=== PATIENT | female | born 1930 | race Caucasian/White ===

== ENCOUNTER 2017-02-28 08:00 | Outpatient (CLI) | payer MEDICARE, OTHER | END 2017-02-28 23:59 | disposition home or self-care (01) | LOC: LAB.R 08:00 | PROVIDERS: ATTEND Internal Medicine | DX: R19.7 Diarrhea, unspecified (principal) | CPT/HCPCS: 81599; 83630; 87045; 87046; 87177; 87209; 87329; 87493 ==

== ENCOUNTER 2017-06-13 15:27 | Day surgery (SDC) | payer MEDICARE ==
[2017-06-13] MEDS ORDERED: ONDANSETRON 4 MG/2 ML VIAL IVP STA ×2 (15:49→19:49)
[2017-06-13] MEDS ORDERED: SODIUM CHLORIDE 0.9% 1,000 ML IV ONE ×2 (15:49→20:12)
[2017-06-13] MEDS ORDERED: MORPHINE 2 MG/ML SYRINGE IVP STA ×2 (15:49→19:41)
--- NOTE | 2017-06-13 15:57 | ED Physician Documentation ---
History of Present Illness - Stated complaint Stated Complaint: ABD PX - Chief complaint Chief Complaint: Abd Pain - Additonal information Additional information: hx from pt and caregiver 86 f s/p patti was fine this AM, ate breakfast took her bath then developed lower abd pain, swelling to RLQ and nausea no diarrhea no urinary sx no hx same Review of Systems Constitutional: denies: Fever Cardiac: denies: Chest pain / pressure Respiratory: denies: Dyspnea GI: reports: Abdominal Pain, Nausea. denies: Diarrhea : denies: Dysuria Endocrine: denies: Easy bruising / bleeding PD PAST MEDICAL HISTORY - Past Medical History Past Medical History: Yes Cardiovascular: Coronary artery disease - Past Surgical History General: Cholecystectomy Cardiovascular: Coronary stent - Present Medications Home Medications: Ambulatory Orders Medication Instructions Recorded Confirmed Aspirin 81 mg PO 06/13/17 Levothyroxine [Synthroid] 50 mcg PO QDAC 06/13/17 06/13/17 Metoprolol Tartrate 25 mg PO 06/13/17 Simvastatin [Zocor] 10 mg PO 06/13/17 - Allergies Allergies/Adverse Reactions: Allergies Allergy/AdvReac Type Severity Reaction Status Date / Time No Known Drug Allergies Allergy Verified 06/13/17 15:44 PD ED PE NORMAL - Vitals Vital signs reviewed: Yes - Neck Neck: Supple, no meningeal sign - Cardiac Cardiac: RRR - Respiratory Respiratory: No respiratory distress - Abdomen Abdomen: Soft, Other (+ BS, soft, tender firm swelling RLQ above inguinal crease c/w incarcerated hernia, unable to reduce) Results - Vitals Vitals: Vital Signs - 24 hr 06/13/17 06/13/17 15:45 16:08 Temperature 36.8 C Heart Rate 65 58 L Respiratory 14 18 Rate Blood Pressure 226/89 H 209/72 H O2 Saturation 97 99 Oxygen O2 Source Room air - Labs Labs: Laboratory Tests 06/13/17 06/13/17 16:04 16:04 WBC 9.6 RBC 4.32 Hgb 12.9 Hct 38.8 MCV 89.7 MCH 29.9 MCHC 33.4 RDW 14.4 Plt Count 163 MPV 8.2 Neut # 8.0 H Lymph # 1.1 L [place] # 0.3 Eos # 0.0 Baso # 0.1 Absolute Nucleated RBC 0.00 Nucleated RBC % 0.0 Sodium 134 L Potassium 3.6 Chloride 98 L Carbon Dioxide 25 Anion Gap 11.0 BUN 22 H Creatinine 0.7 Estimated GFR (MDRD) 79 L Glucose 130 H Calcium 9.6 PD MEDICAL DECISION MAKING - ED course ED course: pt and caregiver advised of old spine fx and liver lesion and need for fup Dr Hernandez to ER and also tried to reduce the hernia s success will go to the OR BP high despite pain meds - anesthesia req lopressor Departure - Departure Disposition: ED Transfer to [facility] Clinical Impression: Incarcerated inguinal hernia, Abnormal CT of the abdomen Hypertension Qualifiers: Hypertension type: unspecified Qualified Code(s): I10 - Essential (primary) hypertension Condition: Good Comments: The CT also showed sme old spine fractures and an abnormal spot in liver that could be cancer and needs further evaluation, perhaps a MRI
[2017-06-13 16:12] LABS: BASOPHILS # (AUTO) 0.1 10^3/uL (0.0-0.1); BASOPHILS % (AUTO) 0.7 %; EOSINOPHILS % (AUTO) 0.5 %; HGB - HEMOGLOBIN 12.9 g/dL (12.0-16.0); LYMPHOCYTES # (AUTO) 1.1 10^3/uL (1.5-3.5); MEAN CORPUSCULAR HEMOGLOBIN 29.9 pg (27.0-31.0); MEAN CORPUSCULAR HGB CONC 33.4 g/dL (32.0-36.0); MEAN CORPUSCULAR VOLUME 89.7 fL (81.0-99.0); MEAN PLATELET VOLUME 8.2 fL (7.9-10.8); MONOCYTES # (AUTO) 0.3 10^3/uL (0.0-1.0); NEUTROPHILS % (AUTO) 83.8 %; PLT - PLATELET COUNT 163 10^3/uL (130-450); RED BLOOD COUNT 4.32 10^6/uL (4.20-5.40); RED CELL DISTRIBUTION WIDTH 14.4 % (12.0-15.0); WHITE BLOOD COUNT 9.6 x10^3/uL (4.8-10.8)
[2017-06-13 16:24] LABS: CALCIUM 9.6 mg/dL (8.5-10.3); CREATININE 0.7 mg/dL (0.4-1.0)
--- NOTE | 2017-06-13 16:50 | CT Report ---
EXAM: CT ABDOMEN AND PELVIS EXAM DATE: 06/13/2017 04:27 PM. CLINICAL HISTORY: Right lower quadrant incarcerated hernia. COMPARISONS: None. TECHNIQUE: Routine helical CT imaging was performed through the abdomen and pelvis. IV contrast: None . Enteric contrast: No. Reconstructions: Coronal and sagittal. In accordance with CT protocol optimization, one or more of the following dose reduction techniques w ere utilized for this exam: automated exposure control, adjustment of mA and/or KV based on patient s ize, or use of iterative reconstructive technique. FINDINGS: Lung Bases: Aortic, coronary artery, and mitral valve calcification noted. Mediastinal and hilar lymp h node calcification noted. Calcified granuloma, anterior temporal lobe. Liver: Segment 4 1.9 x 3.4 x 2.4 cm low density. Scattered calcified granulomas. Otherwise unremarkab le. Gallbladder/Bile Ducts: Cholecystectomy. No dilated ducts. Spleen: Multiple calcified granulomas. Pancreas: Normal. Adrenal Glands: Normal. Kidneys: Normal. No masses or hydronephrosis. Peritoneal Cavity/Bowel: Mild diverticulosis. Mid to distal small bowel obstruction due to small madison l incarcerated within a right inguinal hernia. No free fluid, free air or adenopathy. No masses or ac agutsina inflammatory process. Nonvisualized appendix. Pelvic Organs: Normal. The bladder and visualized pelvic organs are within normal limits. Vasculature: Heavily calcified non-dilated aorta. 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 Other: None. IMPRESSION: 1. Mid to distal small bowel obstruction due to small bowel incarcerated within a right inguinal randy ia. 2. Mild diverticulosis without signs of diverticulitis. 3. Calcified granulomas in the left upper lobe, liver, and spleen. 4. Low-density liver abnormality. Consider MRI evaluation. 5. 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 [facility] Referring Provider Line: [phone] SITE ID: [id number]
[2017-06-13] MEDS ORDERED: METOPROLOL 5 MG/5 ML VIAL IVP STA (19:07)
[2017-06-13 19:19] VITALS: BP 238/106
[2017-06-13] MEDS ORDERED: BUPIVACAINE 0.5% PF 30 ML VIAL ONE (19:59)
[2017-06-13] MEDS ORDERED: LACTATED RINGERS 1,000 ML IV ONE (20:40)
[2017-06-13] MEDS ORDERED: BUPIVACAINE 0.5% PF 30 ML VIAL SUBQ ONE (20:48)
[2017-06-13] MEDS ORDERED: DEXAMETHASONE 4 MG/ML VIAL IVP ONE (21:00)
[2017-06-13] MEDS ORDERED: GLYCOPYRROLATE 1 MG/5 ML VIAL IVP ONE (21:00)
[2017-06-13] MEDS ORDERED: LABETALOL 5 MG/1 ML 20 ML MDV IV ONE (21:00)
[2017-06-13] MEDS ORDERED: ONDANSETRON 4 MG/2 ML VIAL IVP ONE (21:00)
[2017-06-13] MEDS ORDERED: LIDOCAINE-MPF 2% 5 ML VIAL IM ONE (21:00)
[2017-06-13] MEDS ORDERED: MIDAZOLAM 2 MG/2 ML VIAL IVP ONE (21:00)
[2017-06-13] MEDS ORDERED: SUCCINYLCHOLINE 200 MG/10 ML VIAL IVP ONE (21:00)
[2017-06-13] MEDS ORDERED: NEOSTIGMINE 1 MG/1 ML 10 ML MDV IVP ONE (21:00)
[2017-06-13] MEDS ORDERED: fentaNYL 100 MCG/2 ML VIAL IVP ONE (21:00)
[2017-06-13] MEDS ORDERED: ROCURONIUM 50 MG/5 ML VIAL IVP ONE (21:00)
[2017-06-13] MEDS ORDERED: ePHEDrine 50 MG/ML AMP IVP ONE (21:00)
--- NOTE | 2017-06-13 22:16 | CONSULTATION NOTE ---
Referring Provider Name of Referring Provider:: Vesta Mathis MD Consult Date: 06/13/17 Chief Complaint - Chief Complaint Chief Complaint: Abrupt onset of right lower quadrant abdominal pain associated with mass History of Present Illness - Admitted From Admitted From:: Actually not admitted but placed in outpatient status - History Obtained From Records Reviewed: Yes History obtained from: Patient and daughter in law Exam Limitations: None pertinent - History of Present Illness HPI Comment/Other: I was called on consultation by Dr. Vesta Belle to evaluate this very pleasant 86-year-old female for what appeared on CT to be a incarcerated right inguinal hernia with small bowel obstruction. Additionally, and unfortunately, there are also findings of an abnormal liver mass that to my reading looks a lot like malignancy. The patient is a 86-year-old female who is relatively independent but came up here from [facility] to be with her son and [id number]. In fact her [id number] is in the room with her. The patient was doing well this morning ate breakfast and took a bath and when she was trying to have a bowel movement with some increased abdominal pressure had the abrupt onset of right lower quadrant abdominal pain. This was accompanied by nausea but no vomiting. There is no diarrhea. The patient denies hematemesis, melena, or hematochezia. There were no urinary symptoms. There is no previous occurrence of these symptoms. Of note the patient did have her gallbladder removed in [facility] either in [place] or [facility]. History - Past Medical History Cardiovascular: reports: Coronary artery disease - Past Surgical History General: reports: Cholecystectomy Cardiovascular: reports: Coronary stent Meds/Allgy - Home Medications Home Medications: Ambulatory Orders Medication Instructions Recorded Confirmed Aspirin 81 mg PO 06/13/17 Levothyroxine [Synthroid] 50 mcg PO QDAC 06/13/17 06/13/17 Metoprolol Tartrate 25 mg PO 06/13/17 Simvastatin [Zocor] 10 mg PO 06/13/17 - Allergies Allergies/Adverse Reactions: Allergies Allergy/AdvReac Type Severity Reaction Status Date / Time No Known Drug Allergies Allergy Verified 06/13/17 15:44 Review of Systems - Constitutional Constitutional: reports: Fatigue, Poor appetite - Cardiovascular Cariovascular: reports: Lightheadedness. denies: Chest pain - Respiratory Respiratory: denies: Cough - Gastrointestinal Gastrointestinal: reports: Abdominal pain, Nausea, Poor appetite. denies: Constipation, Diarrhea, Rectal bleeding, Black stools, Bloody stools, Vomiting, Bile emesis, Eagle blood emesis - Musculoskeletal Musculoskeletal: reports: Muscle weakness - Neurological Neurological: reports: General weakness Exam - Vital Signs Reviewed Vital Signs: Yes Vital Signs: Vital Signs x48h Temp Pulse Resp BP Pulse Ox 06/13/17 19:27 71 16 238/106 H 95 06/13/17 19:16 68 14 238/106 H 94 06/13/17 19:15 58 L 16 231/103 H 94 06/13/17 19:10 70 17 241/98 H 94 06/13/17 16:08 58 L 18 209/72 H 99 06/13/17 15:45 36.8 C 65 14 226/89 H 97 - Physical Exam General Appearance: positive: Anxious Eyes Bilateral: positive: No lid inflammation, Conjunctivae nml, No scleral icterus ENT: positive: Dry mucous membranes Neck: positive: Trachea midline Respiratory: positive: Chest non-tender, No respiratory distress, Breath sounds nml Cardiovascular: positive: Regular rate & rhythm Abdomen: positive: Tenderness, Hepatomegaly, Abnml bowel sounds (High pitched.) , Other (Distended. There is no place to mention so I am mentioning it here. There is a non-reducible mass at the RIGHT inguinal crease. It is the size of a golf ball. Despite placing the patient in Trendelenburg and attempting to reduce the incarcerated hernia several times I was unsuccessful.) . negative: Guarding, Rebound Skin: positive: Pallor Neurologic/Psychiatric: positive: Oriented x3 Conclusion/Plan - Diagnosis Diagnosis: Incarcerated RIGHT femoral hernia causing small bowel obstruction. Abnormal CT finding on liver concerning for malignancy - Plan Plan: RIGHT femoral herniorrhaphy with reduction of incarcerated small bowel, possible bowel resection, possible laparoscopy, possible liver biopsy. The indications, procedure, alternatives including no surgery, possible risks including infection (deep or superficial), bleeding requiring transfusion (with all of its risks), additional surgery, and were fully explained to the patient and all questions answered. I also explained the pathophysiology. After a discussion the patient indicated that she wanted to be DNR for her operation understood to mean no cardioversion and no compressions. All questions were fully answered. Verbal and written consent was obtained. The patient, in preparation for surgery has been nothing by mouth, and will receive 2 gm of Cephalexin with induction. She will also have TEDs and venadynes placed for prophylaxis of DVT. I asked her to contact me with any surgical questions and her concerns and she stated that she would. I asked her to let me know if there is any way we can make her stay at [facility] more comfortable and she stated that she would let me know. The plan is to do this operation urgently as an outpatient procedure and to discharge her home following the procedure after an outpatient overnight stay due to her age and co-morbidities. 45 minutes of [id number]-vp-[id number] time spent with the patient, over 80% in discussion and coordination of her care - Lab Results Fish Bones: 06/13/17 16:04 06/13/17 16:04
--- NOTE | 2017-06-13 22:46 | OPERATIVE REPORT ---
Operative Report - General Procedure Date: 06/13/17 Planned Procedure: Reduction incarcerated RIGHT femoral hernia, possible bowel resection, poss Pre-Op Diagnosis: Incarcerated RIGHT femoral hernia, small bowel obstruction, abnormal liver Procedure Performed: Open reduction of incarcerated RIGHT femoral hernia Laparoscopic evaluation of previously incarcerated bowel Laparoscopic biopsy of liver tumor/mass Combined laparoscopic and open (mesh) repair of incarcerated RIGHT femoral hernia Post Op Diagnosis: Same - Procedure Note Primary Surgeon: Cody Hernandez MD Anesthesia Provider: Mellisa Moura CRNA Anesthesia Technique: General ET tube, Local (30 mL 1/2% marcaine) IV Fluids (mL): 1,000 Estimated Blood Loss (mL): 5 Urine Output (mL): 100 Complications: None. - Other Other Information/Narrative: OPERATIVE DESCRIPTION/REPORT: After verbal and written informed consent was obtained detailing the risks of infection, bleeding requiring transfusion with its risks, nerve injury, and , and after I met with the patient confirming the surgery and the site of the surgery and after initialing the site of the surgery with a surgical marker , the patient was brought to the operative suite and placed supine on the operating table. Great care was taken to avoid pressure points to prevent pressure necrosis or nerve injury. Monitoring devices were applied along with TEDs and pneumatic compressive stockings (to prevent DVT). The patient received preoperative antibiotics for surgical prophylaxis. Mellisa Moura sedated and anesthetized the patient for the entire procedure. The patient was prepped and draped in the usual sterile manner. With the patient draped my initials were clearly visible. A "time in" then confirmed that the patient was identified with 3 identifiers (name, date and medical record number), the history and physical was in the chart, the signed consent confirming the procedure was in the chart, the patient was in the correct position, the aforementioned prophylactic measures were in place or given, we had the correct personnel and equipment to complete the procedure and that anesthesia, surgery and nursing were given an opportunity to express any concerns. With the agreement of everyone in the room, we proceeded with the operation. After the inguinal area was injected with 0.5% marcaine, anesthetizing the area , a standard incision was made and dissection was carried down to the Bovie electrocautery. The external oblique aponeurosis was cleared of overlying adherent tissue, and the external ring was delineated. Below the external oblique a hernia sac was noted to be coming up and covering the external ring. Dissection of this area revealed that the sac was coming from just medial to the femoral vein. The sac was dissected back to its origin. The sac was quite large and the hernia defect very small. I could not reduce the hernia sac contents without increasing the size of the defect. I did this at the 2 o' clock position with Bovie electrocautery with a right angle clamp defining the fascia. Once this was done the hernia could easily be reduced. I attempted to place the 12 mm blunt tipped port in through the hernia defect but could not see well enough to perforate the peritoneum safely to enter the abdomen. As such I opted to place the port in the standard position at the umbilicus. The initial incision was at the umbilicus and dissection to the linea alba was completed using blunt dissection. The linea alba was grasped with a Josie and incised. In a similar manner the peritoneum was grasped and incised using Metzenbaum scissors. In this location, a 12 mm blunt tipped, balloon tipped port was placed and the balloon was inflated to keep the port in position. The abdominal cavity was insufflated with carbon dioxide to steady-state pressure of 12 mmHg. One additional 5 mm port was placed at the patient's right abdomen lateral to the umbilical port under direct vision and without incident. Depending on whether I was looking at the liver (reverse Trendelenburg) or the hernia defect (Trendelenburg) the patient was moved accordingly throughout the case. I defined and photographed the hernia defect site. Although the incarcerated small bowel looked bruised it was peristalting well and it was "pinking" up well. As I result I photographed it and I thought it was viable. I then turned my attention to the liver. The liver was abnormally rotated down and laterally. When I looked at segments 7 and 8 it was clear that there was an abnormal mass superior to them pushing the liver down and laterally. I performed a trucut liver biopsy under direct vision of this mass and an excellent specimen was obtained. Upon removal of the needle there was a small amount of blood and bile that was easily controlled with the application of Bovie electrocautery. All of this was photographed. Attention was then placed to the hernia defect. The peritoneal sac was ligated intra-abdominally with a 2-0 PDS endoloop. I injected the port sites as well as the hernia site at the peritoneal, fascial, and skin levels under direct vision with 0.5% Marcaine. The remaining carbon dioxide was expelled from the abdomen. A Covidien medium plug (Ref#[id number], Lot#[id number], Use by date 2022) placed in the femoral defect and secured to the fascia with a 3-0 and then 2-0 PDS closing the defect without impinging on the femoral vein. The fascia at the umbilicus was reapproximated using 2 [id number] 0 Vicryl sutures. The skin at each port site was approximated using a subcuticular 4-0 Monocryl. The subcutaneous tissues at the hernia site were approximated with a simple 2-0 Vicryl and the skin incision was approximated with 4-0 Monocryl in a subcuticular fashion. The skin was prepped with benzoin and steristrips were applied at all sites. A dressing was then applied. The surgical count of instruments, needles and sponges was reported as correct twice. Mastisol, Steri -Strips and sterile surgical dressings were applied. The patient was then awakened from anesthesia, extubated, and having tolerated the procedure well, was transported to the recovery room. No complications were encountered. A "time out" confirmed the operation performed, the fluids given, the estimated blood loss and anesthesia, surgery and nursing were given an opportunity to express any concerns. Dragon disclaimer: This document was created in part using voice recognition technology. Because of the inherent limitations of the system ([employer]'s [employer] user manual states that the licensee understands that speech recognition is a statistical process and that recognition errors are inherent in the process), occasional same sounding word substitutions and grammatical errors do occur and persist despite proofreading. Please read this document for context.
[2017-06-14] MEDS ORDERED: LACTATED RINGERS 1,000 ML IV ONE (03:02)
--- NOTE | 2017-06-14 04:48 | CONSULTATION NOTE ---
DATE OF SERVICE: 06/14/2017 Physician: Jacklyn Elise MD REASON FOR CONSULTATION: Management of postoperative hypertension. REFERRING PROVIDER: Cody Hernandez MD, General Surgery. HISTORY OF PRESENT ILLNESS: I am being asked to see patient in the postoperative setting for an inguinal hernia repair. She has recently moved here from [place], and is living with her daughter and son-in-law. She does have a coronary artery history with a stent in the past, as well as previous gallbladder surgery, but is regarded as healthy and independent. She was in her usual state of health when she presented with acute onset of abdominal pain after eating this morning. She had some nausea, no vomiting. No diarrhea. She came to the emergency room because of the increasing pain and was found to be afebrile, normal white cell count, but a CAT scan showing an incarcerated right femoral hernia causing small-bowel obstruction. Unfortunately, there is also an abnormal finding in the liver with the liver mass that looks like it may be a malignancy. Dr. Hernandez promptly took her to the operating room where she had successful treatment of the incarcerated femoral hernia. He has biopsied the liver mass. In the preoperative setting, she takes metoprolol for her blood pressure. In the postoperative setting, her blood pressure was 226/89, remained elevated into the recovery period. Patient herself is asymptomatic and that there is no chest pain, shortness of breath. She does not describe any recent changes in cardiovascular endurance of edema or orthopnea. Dr. Hernandez has asked that we please manage her hypertension. PAST MEDICAL HISTORY 1. Hypertension. 2. Coronary artery disease with previous history of stent. 3. History of cholecystectomy. 4. Hypothyroidism. 5. Hyperlipidemia. ALLERGIES: NO KNOWN DRUG ALLERGIES. SOCIAL HISTORY: She is a nonsmoker, rare alcohol drinker. No history of recreational substance abuse. FAMILY HISTORY: Unobtainable at this time. She is postop, sedated, and can't remember. REVIEW OF SYSTEMS CONSTITUTIONAL: She says that she feels much better with regard to her abdominal pain now that Dr. Hernandez has fixed it. She has some incisional pain, but that horrible bowel pressure and pain are gone. HEAD AND NECK: She denies glaucoma or cataracts. She is a little bit deaf. PULMONARY: Denies emphysema, coughing, wheezing, chest congestion. CARDIAC: Does not have any recent chest pain in the last few months. She denies any edema, orthopnea, palpitations. Currently, denies that at this point in time as well. GASTROINTESTINAL: As above. GENITOURINARY: Occasional urinary incontinence with coughing but denies urgency , frequency, dysuria, hematuria or flank pain. JOINTS: Stiff in the morning, and states that what do you expect when you are her age, but no new effusions or pain. PSYCHIATRIC: Denies depression, anxiety. CENTRAL NERVOUS SYSTEM: Denies stroke-like symptoms, seizures, history of memory loss. PHYSICAL EXAMINATION She is seen in her room after being transferred there from PACU. She is quite sleepy and I have to wake her up. VITAL SIGNS: Temperature is 36.8, blood pressure 238/106 at 8 or 9 in the evening. By the time of the requested Consult, her BP is now 130's/70's. She is asleep, wakens easily and is comfortable. Oxygen saturation is 100%. Pulse rate is 71. GENERAL: She is a thin, thin, elderly woman who is sleepy, and aches a little bit from her abdominal incision, but in no acute distress. HEAD AND NECK: Bilateral temporal wasting, thinness is evident. Dry oral mucosa with pupils reactive, sclerae are nonicteric. Neck is supple without goiter, bruits or JVD. LUNGS: Clear to auscultation and percussion and with slow unlabored respirations. HEART: PMI normally placed with a regular rate and rhythm. No murmurs, rubs, or gallops. ABDOMEN: No bowel sounds at this time, slightly distended, but no rebound or guarding. EXTREMITIES: Very thin without clubbing, cyanosis or edema and severe loss of muscle mass overall. NEUROLOGIC: She is sleepy, but alert to place and time. Understands why she is here and can tell me in loose sentences her good story. No focal deficits. LABORATORY DATA: Before surgery her sodium was 134, BUN 22, creatinine 0.7, random glucose 130. White cell count was 9.6, hemoglobin 12.9. Before her surgery, abdomen and pelvis CT had mild to distal small-bowel obstruction due to small bowel incarceration with right inguinal hernia. Mild diverticulosis. Low density liver abnormality. Chronic severe burst fractures at T11 and 12. ASSESSMENT/PLAN 1. Essential hypertension history. Currently severely uncontrolled in the postoperative setting. I do not know what her baseline pressures are like. She is usually on metoprolol. Because she is n.p.o., would recommend IV Lopressor p.r.n. as well as IV hydralazine until she can start taking medicines by mouth. 2. Postoperative day number 0 for incarcerated right femoral hernia causing small-bowel obstruction. General Surgery to follow. Patient is still in same day surgical status. Anticipate discharge later this morning. 3. FULL CODE at this time. 4. Liver mass, status post biopsy. Will need to be followed up in the outpatient setting. 5. Deep venous thrombosis prophylaxis is thromboembolic disease hose and compression stockings. TD: 06/14/2017 04:47 YANIRA
[2017-06-14] MEDS ORDERED: hydrALAZINE INJ 20 MG/ML VIAL IVP PRN (06:16)
[2017-06-14] MEDS ORDERED: METOPROLOL 5 MG/5 ML VIAL IVP PRN (06:22)
[2017-06-14] MEDS ORDERED: HYDROcod/ACETAM 5/325 MG TABLET PO PRN (06:23)
[2017-06-14] MEDS ORDERED: HYDROmorphone 0.5 MG/0.5 ML SYRINGE IVP PRN (06:23)
[2017-06-14] MEDS ORDERED: ONDANSETRON 4 MG/2 ML VIAL IVP PRN (06:24)
== END 2017-06-14 10:00 | disposition home or self-care (01) ==
LOC: ED 15:27 → SDS 18:58 → MS2 22:41 → SDS 06-14 10:00
PROVIDERS: ATTEND Surgery
PROC: 0YU70JZ Supplement Right Femoral Region with Synthetic Substitute, Open Approach (ICD-10-PCS; principal; 2017-06-13 19:46)
PROC: 0FB04ZX Excision of Liver, Percutaneous Endoscopic Approach, Diagnostic (ICD-10-PCS; 2017-06-13 19:46)
DX: K41.90 Unilateral femoral hernia, without obstruction or gangrene, not specified as recurrent (principal); K41.30 Unilateral femoral hernia, with obstruction, without gangrene, not specified as recurrent; K56.609 Unspecified intestinal obstruction, unspecified as to partial versus complete obstruction; K73.9 Chronic hepatitis, unspecified; I25.10 Atherosclerotic heart disease of native coronary artery without angina pectoris; Z79.82 Long term (current) use of aspirin
CPT/HCPCS: 36415; 47379; 49553; 74176; 80048; 85025; 96361; 96374; 96375; 96376; 99284; A9270; C1781; J0330; J2270; J7120; 88307; 88313; 99283

== ENCOUNTER 2017-08-16 03:01 | Outpatient (CLI) | payer MEDICARE | END 2017-08-16 03:02 | disposition critical access hospital (66) | LOC: EMS 03:01 | PROVIDERS: ATTEND Surgery | DX: M25.552 Pain in left hip (principal); W19.XXXA Unspecified fall, initial encounter | CPT/HCPCS: A0425; A0427 ==

== ENCOUNTER 2017-08-16 03:13 | Inpatient (IN) | payer MEDICARE ==
--- NOTE | 2017-08-16 03:24 | ED Physician Documentation ---
PD HPI LOWER EXT INJURY - Stated complaint Stated Complaint: FELL, LEFT HIP PAIN AND DEFORMITY - History obtained from History obtained from: Patient, Family - History of Present Illness PD HPI LOW EXT INJURY LOCATION: Left, Hip Type of injury: Fall Where injury occurred: Home Timing - onset: Enter time (19:00), Last night Timing - duration: Hours Timing - details: Abrupt onset Improved by: Rest Worsened by: Moving, Palpating Associated symptoms: Swelling Contributing factors: No: Anticoagulated, Prior ortho surgery, Prosthetic joint , Work related Recently seen: Not recently seen Review of Systems Ten Systems: 10 systems reviewed and negative Musculoskeletal: reports: Joint pain, Joint swelling, Pain with weight bearing ( unable to weight bear LLE). denies: Neck pain, Back pain Neurologic: reports: Reviewed and negative PD PAST MEDICAL HISTORY - Past Medical History Cardiovascular: Coronary artery disease - Past Surgical History General: Cholecystectomy Cardiovascular: Coronary stent - Present Medications Home Medications: Ambulatory Orders Medication Instructions Recorded Confirmed Aspirin 81 mg PO DAILY 06/13/17 08/16/17 Levothyroxine Sodium [Synthroid] 50 mcg PO QDAC 08/16/17 08/16/17 Metoprolol Succinate [Toprol Xl] 25 mg PO DAILY 08/16/17 08/16/17 Simvastatin [Simvastatin] 20 mg PO QPM 08/16/17 08/16/17 - Allergies Allergies/Adverse Reactions: Allergies Allergy/AdvReac Type Severity Reaction Status Date / Time No Known Drug Allergies Allergy Verified 08/16/17 03:27 - Social History Does the pt smoke?: No Smoking Status: Never smoker Does the pt drink ETOH?: No Does the pt have substance abuse?: No - Immunizations Immunizations are current?: Yes PD ED PE NORMAL - Vitals Vital signs reviewed: Yes - General General: Alert and oriented X 3, No acute distress, Well developed/nourished - HEENT HEENT: Moist mucous membranes - Neck Neck: No bony TTP - Cardiac Cardiac: RRR - Respiratory Respiratory: No respiratory distress, Clear bilaterally - Abdomen Abdomen: Soft, Non tender - Back Back: No spinal TTP - Derm Derm: Normal color, Warm and dry - Extremities Extremities: No edema - Neuro Neuro: Alert and oriented X 3, barrel painter 2-12 intact, No motor deficit, No sensory deficit, Normal speech Eye Opening: Spontaneous Motor: Obeys Commands Verbal: Oriented GCS Score: 15 PD ED PE EXPANDED - Extremities Extremities: Tenderness, Limited ROM, Left hip Results - Vitals Vitals: Oxygen O2 Source Nasal cannula - Labs Labs: Laboratory Tests 08/16/17 08/16/17 08/16/17 05:15 05:15 05:15 WBC 6.7 RBC 3.54 L Hgb 11.0 L Hct 33.2 L MCV 93.6 MCH 31.1 H MCHC 33.2 RDW 14.3 Plt Count 132 MPV 8.0 Neut # (Auto) 5.3 Lymph # (Auto) 1.0 L [place] # (Auto) 0.4 Eos # (Auto) 0.0 Baso # (Auto) 0.0 Absolute Nucleated RBC 0.00 Nucleated RBC % 0.0 Sodium 135 Potassium 4.0 Chloride 103 Carbon Dioxide 26 Anion Gap 6.0 BUN 25 H Creatinine 0.9 Estimated GFR (MDRD) 59 L Glucose 151 H Calcium 9.3 Blood Type A POSITIVE Antibody Screen POSITIVE Antibody Identification Warm Auto Antibody Crossmatch IS Only 08/16/17 05:15 WBC RBC Hgb Hct MCV MCH MCHC RDW Plt Count MPV Neut # (Auto) Lymph # (Auto) [place] # (Auto) Eos # (Auto) Baso # (Auto) Absolute Nucleated RBC Nucleated RBC % Sodium Potassium Chloride Carbon Dioxide Anion Gap BUN Creatinine Estimated GFR (MDRD) Glucose Calcium Blood Type Cancelled Antibody Screen Cancelled Antibody Identification Crossmatch IS Only See Detail - Rads (name of study) chest xray Radiology: Prelim report reviewed, See rad report left hip xrays Radiology: Prelim report reviewed, See rad report PD MEDICAL DECISION MAKING - ED course Complexity details: reviewed results, re-evaluated patient, considered differential, d/w patient, d/w family - Sepsis Event Vital Signs: Oxygen O2 Source Nasal cannula Departure - Departure Disposition: 66 [facility] DC/Xfer Clinical Impression: Hip fracture, left Condition: Stable Discharge Date/Time: 08/16/17 05:50
[2017-08-16] MEDS ORDERED: fentaNYL 100 MCG/2 ML VIAL IVP STA (03:33)
[2017-08-16] MEDS ORDERED: fentaNYL 100 MCG/2 ML VIAL ONE (03:47)
--- NOTE | 2017-08-16 04:17 | XRAY Report ---
Procedure Date: 08/16/2017 Accession Number: [id number] / [id number] Procedure: XR - Hip w/Pelvis 2-3V LT CPT Code: FULL RESULT: EXAM: LEFT HIP AND PELVIS RADIOGRAPHY EXAM DATE: 08/16/2017 04:04 AM. HISTORY: Fall, left hip pain. COMPARISONS: None. TECHNIQUE: 1 view of the pelvis and 1 view of the hip. FINDINGS: Bones: Osteopenia. Left hip fracture which is probably intertrochanteric. Joints: No dislocation seen. Mild degenerative changes in the hips. Soft Tissues: Soft tissue swelling. IMPRESSION: 1. Osteopenia with left hip fracture which is probably intertrochanteric. RADIA
--- NOTE | 2017-08-16 04:18 | XRAY Report ---
Procedure Date: 08/16/2017 Accession Number: [id number] / [id number] Procedure: XR - Chest 1 View X-Ray CPT Code: 59328 FULL RESULT: EXAM: CHEST RADIOGRAPHY EXAM DATE: 08/16/2017 04:03 AM. CLINICAL HISTORY: Left hip fracture. Preoperative exam for fracture repair. COMPARISON: None. TECHNIQUE: 1 view. FINDINGS: Lungs/Pleura: Small lung volumes. No alveolar consolidation or pleural effusion seen. No pneumothorax. Mediastinum: Within exam limitations, heart appears mildly enlarged. Mitral annulus calcification. Aortic calcification. Other: Osteopenia. Status post cholecystectomy. IMPRESSION: 1. Small lung volumes and mild cardiomegaly. 2. Mitral annulus calcification. RADIA
--- NOTE | 2017-08-16 04:59 | PROVIDER PROGRESS NOTE ---
Subjective - Prog Note Date Prog Note Date: 08/16/17 Prog Note Time: 04:57 - Subjective Pt reports feeling: Worse (Patient STCORRINA hickey GLF last PM, injuring her left hip. This morning continued to hurt and unable to weight bear on left. Taken to ED where XR showed a left IT hip fracture. Last ate prior to midnight. No prior hip fx. No LOC or other injury) Objective - Vital Signs/Intake & Output Vital Signs: Vital Signs x48h Temp Pulse Resp BP Pulse Ox 08/16/17 03:15 36.2 C L 73 16 186/91 H 95 - Lab Results Fish Bones: 08/16/17 05:15 08/16/17 05:15 - Diagnostic Imaging Diagnostic Imaging Results: positive: Other Diagnostic Imaging Comments: XR show left IT hip fracture - Other Results/Comments Other Results/Comments: EXAM: Left hip - painful hip motion. Lateral hip tenderness. Moves toes well. Sensation intact. Good cap filling Assessment/Plan - Problem List (1) Closed left hip fracture Impression: Fracture is IT in location PLAN: if cleared by medicine, plan short interTan nailing of fracture this AM. Risk/Benefits of surgery explained. Questions answered. Leg marked. Consent signed. Qualifiers: Encounter type: initial encounter Qualified Code(s): S72.002A - Fracture of unspecified part of neck of left femur, initial encounter for closed fracture
[2017-08-16 05:26] LABS: BASOPHILS % (AUTO) 0.5 %; EOSINOPHILS % (AUTO) 0.2 %; LYMPHOCYTES % (AUTO) 14.6 %; MEAN CORPUSCULAR HEMOGLOBIN 31.1 pg (27.0-31.0); MEAN CORPUSCULAR HGB CONC 33.2 g/dL (32.0-36.0); MEAN CORPUSCULAR VOLUME 93.6 fL (81.0-99.0); MONOCYTES # (AUTO) 0.4 10^3/uL (0.0-1.0); MONOCYTES % (AUTO) 6.1 %; NEUTROPHILS # (AUTO) 5.3 10^3/uL (1.5-6.6); NEUTROPHILS % (AUTO) 78.6 %; PLT - PLATELET COUNT 132 10^3/uL (130-450); RED BLOOD COUNT 3.54 10^6/uL (4.20-5.40); RED CELL DISTRIBUTION WIDTH 14.3 % (12.0-15.0); WHITE BLOOD COUNT 6.7 x10^3/uL (4.8-10.8)
[2017-08-16 05:36] LABS: CALCIUM 9.3 mg/dL (8.5-10.3); CREATININE 0.9 mg/dL (0.4-1.0)
[2017-08-16] MEDS ORDERED: ONDANSETRON 4 MG/2 ML VIAL IVP PRN ×2 (05:36→11:26)
[2017-08-16] MEDS ORDERED: ONDANSETRON ODT 4 MG TABLET TL PRN (05:36)
[2017-08-16] MEDS ORDERED: SODIUM CHLORIDE FLUSH 0.9% 10 ML SYRINGE IVP PRN ×2 (05:36→11:26)
[2017-08-16] MEDS ORDERED: METOPROLOL 5 MG/5 ML VIAL IVP STA (05:40)
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
[2017-08-16] MEDS ORDERED: SODIUM CHLORIDE 0.9% 1,000 ML IV SCH (06:00)
[2017-08-16] MEDS ORDERED: ceFAZolin 2 GM/50 ML 2 GM/50 ML BAG IV SCH ×2 (08:00→11:30)
[2017-08-16] MEDS ORDERED: cloNIDine 0.1 MG TABLET PO PRN (08:08)
--- NOTE | 2017-08-16 08:43 | CONSULTATION NOTE ---
DATE OF SERVICE: 08/16/2017 Physician: lFex Pérez MD REFERRING PHYSICIAN: Dr. Sridhar Wheat of the Emergency Room Department. CHIEF COMPLAINT: "My left hip hurts." HISTORY OF PRESENT ILLNESS: The patient is an 86-year-old woman recently moved up here from [place], and living with her son, who apparently had an unwitnessed ground level fall at her home last evening. She was put in the bed, albeit with some pain in her left hip. When she attempted to get up in the middle of the night to go to the bathroom, she had too much pain to be able to weight-bear or to walk to the bathroom. This prompted their evaluation in the Emergency Room early this morning. X-rays taken in the Emergency Room show an impacted left intertrochanteric hip fracture. The patient had no other injuries noted. No loss of consciousness or nausea or vomiting. No prior hip fracture is noted. PHYSICAL EXAMINATION: Left hip was evaluated. Left hip was painful with range of motion. Had lateral hip tenderness on palpation. The patient moves her toes well. Sensation appeared to be intact. Good capillary refilling noted. X-RAYS: Left hip films show an impacted left intertrochanteric hip fracture, in a mild amount of varus angulation. ASSESSMENT: 1. Closed left intertrochanteric hip fracture. 2. History of hypertension. PLAN: The patient had been cleared by medicine for surgical intervention later this morning. We will plan then on doing a short Intertan nailing of her left hip fracture. The risks and benefits of surgery were explained to the patient and her son, including anesthesia risks, blood loss, infection, nerve damage, malunion or nonunion, deep venous thromboses, etc. All of their questions were answered. They wished to proceed with surgery as planned. The leg was marked. Consent signed. TD: 08/16/2017 08:19
[2017-08-16] MEDS: MORPHINE 2 MG/ML SYRINGE IVP PRN ×2 (08:54→15:58)
[2017-08-16] MEDS ORDERED: SODIUM CHLORIDE FLUSH 0.9% 10 ML SYRINGE IVP SCH (09:00)
--- NOTE | 2017-08-16 09:14 | ANESTHESIA ---
Pre-Anesthesia VS, & Labs left hip fracture short intertan nailing of left hip Vital Signs: Temp Pulse Resp BP Pulse Ox 37.1 C 60 18 171/61 H 98 08/16/17 08:00 08/16/17 08:00 08/16/17 08:00 08/16/17 08:00 08/16/17 08:00 Height and Weight: Height 5 ft Weight (kg) 44 kg Body Mass Index 18.9 - Lab Results Fish Bones: 08/16/17 05:15 08/16/17 05:15 Home Medications and Allergies Home Medications: Ambulatory Orders Medication Instructions Recorded Confirmed Aspirin 81 mg PO DAILY 06/13/17 08/16/17 Levothyroxine Sodium [Synthroid] 50 mcg PO QDAC 08/16/17 08/16/17 Metoprolol Succinate [Toprol Xl] 25 mg PO DAILY 08/16/17 08/16/17 Simvastatin [Simvastatin] 20 mg PO QPM 08/16/17 08/16/17 Allergies/Adverse Reactions: Allergies Allergy/AdvReac Type Severity Reaction Status Date / Time No Known Drug Allergies Allergy Verified 08/16/17 03:27 Anes History & Medical History - Airway/Dental Dental: Dentures full Upper, Dentures full Lower Neck Mobility: Reduced Mallampati classification: II - Medical History Cardiovascular: reports: Hypertension, High cholesterol, Coronary artery disease , [place] Pulmonary: reports: None Gastrointestinal: reports: Hepatitis, Cirrhosis (with liver mass, pathology from 06/2017 in [facility]) Urinary: reports: None Neuro: reports: Tremors Musculoskeletal: reports: Osteoarthritis, Osteoporosis, Chronic back pain Endocrine/Autoimmune: reports: HyPOthyroidism Blood Disorders: reports: None Skin: reports: None Smoking Status: Former smoker Psychosocial: reports: No issues indicated - Surgical History General: Cholecystectomy, Other Cardiothoracic: Coronary stent Results - EKG Results EKG Comparison: Old EKG unavailable Exam Respiratory: Lungs clear Cardiovascular: Normal S1, Normal S2, No murmurs Extremities: No clubbing Mental/Cognitive Status: Alert/Oriented X3 Cognitive Status: Within normal limits Plan Anesthesia Type: Spinal ASA classification: 3-Severe systemic disease Is this case an emergency?: No
[2017-08-16] MEDS ORDERED: BUPIVACAINE 0.25%-EPI 1:200000 PF 30 ML VIAL ONE (09:56)
[2017-08-16] MEDS ORDERED: BUPIVACAINE 0.25% PF 30 ML VIAL ONE (09:57)
[2017-08-16] MEDS ORDERED: SODIUM CHLORIDE 0.9% 1,000 ML IV ONE (09:59)
[2017-08-16] MEDS ORDERED: BUPIVACAINE 0.25%-EPI 1:200000 PF 30 ML VIAL SUBQ ONE ×2 (10:47)
[2017-08-16] MEDS ORDERED: ePHEDrine 50 MG/ML VIAL IVP ONE (10:48)
[2017-08-16] MEDS ORDERED: fentaNYL 100 MCG/2 ML VIAL IVP ONE (10:48)
[2017-08-16] MEDS ORDERED: MIDAZOLAM 2 MG/2 ML VIAL IVP ONE (10:48)
[2017-08-16] MEDS ORDERED: PROPOFOL 200 MG/20 ML VIAL IVP ONE (10:48)
[2017-08-16] MEDS ORDERED: oxyCOD/ACETAMIN 5 MG/325 MG TABLET PO PRN (11:26)
[2017-08-16] MEDS ORDERED: PROCHLORPERAZINE 10 MG/2 ML VIAL IVP PRN (11:26)
[2017-08-16] MEDS ORDERED: DOCUSATE SODIUM 100 MG CAPSULE PO PRN (11:26)
[2017-08-16] MEDS ORDERED: MORPHINE 2 MG/ML SYRINGE IVP PRN (11:26)
--- NOTE | 2017-08-16 11:32 | OPERATIVE REPORT ---
Operative Report - General Admit Date: 08/16/17 Procedure Date: 08/16/17 Planned Procedure: Short interTan nailing of left hip fracture Pre-Op Diagnosis: Closed left intertrochanteric hip fracture Procedure Performed: Closed reduction and short interTan nailing of left hip fracture Post Op Diagnosis: Same - Procedure Note Primary Surgeon: Kwadwo Pérez Anesthesia Provider: Mellisa Moura CRNA Anesthesia Technique: Spinal IV Fluids (mL): 700 Estimated Blood Loss (mL): 50 Urine Output (mL): 200 Complications: None
[2017-08-16] MEDS: POLYETHYLENE GLYCOL 3350 17 GM PACKET PO SCH (11:34)
[2017-08-16] MEDS ORDERED: LACTATED RINGERS 1,000 ML IV ONE (11:45)
--- NOTE | 2017-08-16 11:55 | XRAY Report ---
Procedure Date: 08/16/2017 Accession Number: [id number] / [id number] Procedure: FL - OR C-Arm Procedure CPT Code: FULL RESULT: EXAM: OR C-Arm Procedure DATE: 08/16/2017 11:19 AM CLINICAL HISTORY: left hip fracture Please refer to left hip intraoperative films of the same day.
--- NOTE | 2017-08-16 11:55 | XRAY Report ---
Procedure Date: 08/16/2017 Accession Number: [id number] / [id number] Procedure: XR - Hip w/Pelvis 2-3V LT CPT Code: FULL RESULT: EXAM: Hip w/Pelvis 2-3V LT DATE: 08/16/2017 11:19 AM CLINICAL HISTORY: Left Hip Fracture COMPARISON: 08/16/2017 TECHNIQUE: Intraoperative imaging of fracture fixation. 22 seconds of fluoroscopy provided to Dr. Pérez. 4 spot images obtained. FINDINGS: Intraoperative imaging of left hip fracture fixation demonstrates dynamic compression screw and short IM annette in place. IMPRESSION: Intraoperative imaging of left hip fracture fixation. RADIA
--- NOTE | 2017-08-16 12:35 | OPERATIVE REPORT ---
DATE OF SERVICE: 08/16/2017 Physician: Flex Pérez MD PREOPERATIVE DIAGNOSIS: Closed left intertrochanteric hip fracture. POSTOPERATIVE DIAGNOSIS: Closed left intertrochanteric hip fracture. PROCEDURE PERFORMED: Closed reduction and short Intertan nailing of left hip fracture. SURGEON: Flex Pérez MD ANESTHESIA: General. DESCRIPTION OF PROCEDURE: The patient was taken to the operating room on the morning of 08/16/2017 where she was placed under a spinal anesthetic without any complications. She was then positioned supine and positioned onto our fracture table. The right unfractured extremity had her hip flexed and widely abducted and held in a well leg eli. The fractured left extremity was then placed into axial traction with the leg internally rotated approximately 25 degrees. Fluoroscopic views in AP and lateral projection showed good reduction of the fracture. We then prepped and draped the lateral aspect of the hip in the usual fashion for our procedure. Making an oblique skin incision just proximal to the tip of the greater trochanter, we dissected bluntly down to the tip of the greater trochanter. This was where we placed a threaded-tip guidewire. Its position was confirmed with the fluoroscopic views of the hip. Satisfied with this, we then drove the guidepin into the proximal femur down to the level of the lesser trochanter. The position and depth of the guidepin was then confirmed in AP and lateral projections. Satisfied with this, we then proceeded to ream the proximal femur using the guidepin as our guide with the cannulated channel reamer with power. This was again reamed to the level of the lesser trochanter. We then removed the reamer and the guidepin. We then inserted manually the selected short Intertan nail - 10 mm x 18 cm x 125 degree angle. This was inserted after the nail was placed in the insertion guide. Checking with C-arm fluoroscopy, we advanced the nail until the oblique proximal end of the nail was in line with the central axis of the femoral neck and head. We then placed the oval drill sleeve in the distal end of our insertion guide, advancing it to the lateral femoral cortex through a small skin incision. Next, the pin drill sleeve/guide was inserted into our oval sleeve. Next, we drilled the threaded tip guidewire under power through our pin guide up through the proximal femur, femoral neck, and femoral head within a few millimeters of the subchondral bone. The pin was checked for depth and location in both AP and lateral projections. This was felt to be in a good position. Direct measuring guide was then used to determine the length of our subtrochanteric hip lag screw. We selected the 11 x 95 mm subtrochanteric hip lag screw. This was inserted on the screw insertion device. We then manually inserted this over our guidepin after we removed our pin guide from our oval sleeve apparatus. We manually inserted the hip lag screw until it was within a few millimeters of the subchondral bone in both AP and lateral projections. Satisfied with this, we then released the tension off the leg and proceeded to compress the fracture using the compression. This compression was visualized with AP projections. Satisfied with the impaction of our fracture, we then locked the hip lag screw by advancing the set screw in the proximal end of our nail snugly with the hinged screwdriver. This was then backed off 90 degrees. We then removed the screw insertion apparatus from the hip lag screw. Next, we directed our attention to place the distal interlocking screw in place. Through a small skin incision, we inserted the concentric gold and silver drill sleeves up against the lateral femoral shaft through the small incision. We selected the dynamic slot of the distal insertion guide to place the concentric drill sleeves. We then proceeded to drill bicortically the femoral shaft. Once we penetrated the medial cortex, we then measured the selected screw directly off our drill bit. It was determined we would use a 30 mm length distal locking screw. We then inserted the 5 x 30 mm distal locking screw on its insertion device through the Gold sleeve after the concentric Silver sleeve had been removed. We advanced the screw until we got bicortical purchase. Fluoroscopic views and AP and lateral projection, showed the screw to be through the dynamic hole in the distal end of our interlocking nail and the screw to be bicorticate. Final views in AP and lateral projections of the distal end of the nail and of the hip were then obtained. Satisfied with the placement of our hardware and the reduction of the fracture, we then proceeded to irrigate the wounds out thoroughly with saline. Closed the wound in layers using simple stitches of 0 Vicryl to approximate the fascia adin layer proximately. Buried simple stitches of 2-0 Vicryl were used to approximate the proximal and mid incision. Finally, skin conor used to approximate the skin edges to all 3 wounds. We then injected a total of 20-22 mL of 0.25% Marcaine with epinephrine for local anesthetic for all 3 of our skin incisions. We then dressed the wounds. The patient transferred off the fracture table and onto her bed, and taken to the recovery room in satisfactory condition. ESTIMATED BLOOD LOSS: 50 mL. REPLACEMENT: 700 mL crystalloid. INTRAOPERATIVE COMPLICATIONS: There was noted a skin tear in her left medial distal calf. She had had similar skin tears before coming to the operating room, principally involving her left elbow. PLAN: The patient will begin physical therapy tomorrow the day after surgery. She may go weightbearing as tolerated on the left lower extremity as tolerated. TD: 08/16/2017 11:56
[2017-08-16] MEDS: SODIUM CHLORIDE 0.9% 1,000 ML IV SCH (13:23)
[2017-08-16] MEDS ORDERED: METOPROLOL SUCCINATE 25 MG TABLET PO SCH (15:00)
[2017-08-16] MEDS: ACETAMINOPHEN 1,000 MG/100 ML 100 ML IV PRN (15:47)
[2017-08-16] MEDS: METOPROLOL SUCCINATE 25 MG TABLET PO SCH (15:47)
[2017-08-16] MEDS: SODIUM CHLORIDE FLUSH 0.9% 10 ML SYRINGE IVP SCH (16:00)
[2017-08-16] MEDS ORDERED: ASPIRIN CHEW 81 MG TABLET PO SCH (16:00)
--- NOTE | 2017-08-16 16:41 | PROVIDER PROGRESS NOTE ---
Subjective - Prog Note Date Prog Note Date: 08/16/17 - Subjective Pt reports feeling: No change Subjective: pt report she has some pain in the operation site after surgery . pt came back the medical floor from hip repair. No CP, SOB, fever, chill. Current Medications - Current Medications Current Medications: Active Medications Acetaminophen (Tylenol) 650 - 975 mg PO Q4HR PRN PRN Reason: PAIN Aspirin (Meek) 325 mg PO BIDWM [facility] Last Admin: 08/16/17 16:04 Dose: 325 mg Atorvastatin Calcium (Lipitor) 10 mg PO QPM [facility] Clonidine HCl (Catapres) 0.1 mg PO BID PRN PRN Reason: Hypertensive Emergency Last Admin: 08/16/17 09:45 Dose: 0.1 mg Docusate Sodium (Colace 100mg Capsule) 100 mg PO BID PRN PRN Reason: Constipation Acetaminophen (Ofirmev) 100 mls @ 400 mls/hr IV Q6HR PRN PRN Reason: PAIN Last Admin: 08/16/17 15:47 Dose: 400 mls/hr Sodium Chloride (Normal Saline 0.9%) 1,000 mls @ 100 mls/hr IV .Q10H [facility] Last Admin: 08/16/17 13:23 Dose: 100 mls/hr Cefazolin Sodium/Dextrose (Ancef 2 Gm/50 Ml) 2 gm in 50 mls @ 100 mls/hr IV Q8H [facility] Stop: 08/17/17 02:29 Levothyroxine Sodium (Synthroid) 50 mcg PO QDAC [facility] Metoprolol Succinate (Toprol Xl) 25 mg PO DAILY [facility] Last Admin: 08/16/17 15:47 Dose: 25 mg Morphine Sulfate (Morphine) 2 mg IVP Q2H PRN PRN Reason: Pain 8 to 10 Last Admin: 08/16/17 15:58 Dose: 2 mg Morphine Sulfate (Morphine) 2 mg IVP Q2HR PRN PRN Reason: PAIN Ondansetron HCl (Zofran Inj) 4 mg IVP Q6HR PRN PRN Reason: Nausea / Vomiting Ondansetron HCl (Zofran Inj) 4 mg IVP Q6HR PRN PRN Reason: Nausea / Vomiting Oxycodone/Acetaminophen (Percocet 5 Mg/325 Mg) 1 tab PO Q4HR PRN PRN Reason: PAIN Polyethylene Glycol (Miralax) 17 gm PO DAILY [facility] Last Admin: 08/16/17 11:34 Dose: Not Given Prochlorperazine Edisylate (Compazine Inj) 10 mg IVP Q6HR PRN PRN Reason: Nausea / Vomiting Senna (Senokot) 17.2 mg PO Q12H PRN PRN Reason: Constipation Sodium Chloride (Normal Saline Flush 0.9%) 10 ml IVP 0100,0900,1700 [facility] Last Admin: 08/16/17 16:00 Dose: Not Given Sodium Chloride (Normal Saline Flush 0.9%) 10 ml IVP PRN PRN PRN Reason: NEEDED PER PROVIDER ORDERS Aspirin 81 mg PO DAILY 06/13/17 Levothyroxine Sodium [Synthroid] 50 mcg PO QDAC 08/16/17 Metoprolol Succinate [Toprol Xl] 25 mg PO DAILY 08/16/17 Simvastatin [Simvastatin] 20 mg PO QPM 08/16/17 Objective - Vital Signs/Intake & Output Reviewed Vital Signs: Yes Vital Signs: Vital Signs x48h Temp Pulse Resp BP Pulse Ox 08/16/17 15:35 37.7 C H 72 20 142/55 H 93 08/16/17 15:02 65 14 134/58 H 92 08/16/17 13:57 69 13 141/63 H 94 08/16/17 13:26 36.6 C 71 16 120/73 95 08/16/17 13:05 69 16 140/63 H 95 08/16/17 12:55 98 08/16/17 12:50 98 08/16/17 12:45 97 08/16/17 12:41 95 08/16/17 12:34 99 08/16/17 12:30 99 08/16/17 12:25 100 08/16/17 12:20 100 08/16/17 12:10 100 08/16/17 12:05 100 08/16/17 12:00 99 08/16/17 11:55 100 08/16/17 11:50 100 08/16/17 11:45 100 08/16/17 11:40 99 08/16/17 11:35 99 08/16/17 11:27 99 Intake & Output: Intake & Output 07/02/18 07/03/18 07/04/18 07/05/18 23:59 23:59 23:59 23:59 Intake Total 550 Output Total 25 Balance 525 - Objective General Appearance: positive: No acute distress, Alert. negative: Lethargic Eyes Bilateral: positive: Normal inspection, PERRL, No lid inflammation, Conjunctivae nml ENT: positive: ENT inspection nml, Pharynx nml, No signs of dehydration. negative: Purulent nasal drainage, Pharyngeal erythema, Oral lesions Neck: positive: Nml inspection, Thyroid nml, No JVD, Trachea midline. negative : Thyromegaly, Lymphadenopathy (R), Lymphadenopathy (L), Stiff neck, Swelling/ bruising, Tracheal deviation Respiratory: positive: Chest non-tender, No respiratory distress, Breath sounds nml. negative: Wheezes, Rales, Rhonchi Cardiovascular: positive: Regular rate & rhythm, No murmur, No gallop. negative : Irregularly irregular, Extrasystoles, Tachycardia, Bradycardia, PMI displaced laterally, JVD present, Systolic murmur, Diastolic murmur Peripheral Pulses: 2+ Radial (R), 2+ Radial (L), 2+ Dorsalis pedis (R), 2+ Dorsalis pedis (L) Abdomen: positive: Non-tender, No organomegaly, Nml bowel sounds, No distention. negative: Tenderness, Guarding, Rebound Back: positive: Nml inspection. negative: CVA tenderness (R), CVA tenderness (L ) Skin: positive: Color nml, No rash, Warm, Dry. negative: Cyanosis, Diaphoresis , Pallor Extremities: positive: Non-tender, Nml appearance. negative: Calf tenderness, Joint swelling, Zayra's sign/cords Neurologic/Psychiatric: positive: Sensation nml. negative: Weakness, Sensory loss, Facial droop, Slurred/abnml speech, Depressed mood/affect - Lab Results Fish Bones: 08/16/17 05:15 08/16/17 05:15 ABX Reporting Has patient been on IV antibiotics over the past 48 hours?: No Assessment/Plan - Problem List (1) Closed left hip fracture Impression: Conclusion/Plan: pt just had hip repair H&H to monitor pain control PT/OT from a mechanical fall but I am concerned about her inability to remember why or how the fall happened. Plan: admit to inpatient status consult with Dr. Pérez, [facility] on telemetry to see if there is arrhythmia check troponins. check ECHO (2) Preoperative cardiovascular examination Conclusion/Plan: Revised cardiac index is positive for history of ischemic heart disease but no hx of CVD, no insulin, Creat is < 2, and this is not high risk surgery. She is Class II risk with 1 point and 0.9% of risk of major cardiac event. (3) Hypertension Conclusion/Plan: stable, resume home meds Cloninide PRN not at goal. She is on metoprolol and is NPO for surgery. Will give one dose of IV lopressor. Because of usual hypotension associated with surgery will not treat for now. Aim for 140 sytolic after surgery. She had elevated preop blood pressure with her femoral incarceration and post op was fine. She didn't need her meds adjusted. (4) Normocytic anemia Conclusion/Plan: H&H monitor pt She was 12.9 grams of hgb in June. This may be due to loss within the hip. Monitor post op and expect acute blood loss anemia. Dr. Pérez has already ordered and T&C. (5) Liver tumor (benign) Conclusion/Plan: With her postop visit to Dr. Hernandez, an MRI was recommended to visualize this mass. Dr. Celeste Byers is her PCP. They may have opted not to do it. (6) Hypothyroid Conclusion/Plan: continue home meds, follow up TSH test value check TSH. Once she is not NPO resume her usual meds. Qualifiers: Encounter type: initial encounter Qualified Code(s): S72.002A - Fracture of unspecified part of neck of left femur, initial encounter for closed fracture
[2017-08-16] MEDS ORDERED: ASPIRIN 325 MG TABLET PO SCH (17:00)
[2017-08-16] MEDS: ceFAZolin 2 GM/50 ML 2 GM/50 ML BAG IV SCH (18:09)
[2017-08-16 20:07] LABS: HGB - HEMOGLOBIN 8.5 g/dL (12.0-16.0)
[2017-08-16] MEDS: ATORVASTATIN 10 MG TABLET PO SCH (20:11)
[2017-08-17] MEDS: SODIUM CHLORIDE 0.9% 1,000 ML IV SCH ×4 (00:16→22:22)
[2017-08-17] MEDS: SODIUM CHLORIDE FLUSH 0.9% 10 ML SYRINGE IVP SCH ×3 (00:46→16:48)
[2017-08-17] MEDS: ACETAMINOPHEN 1,000 MG/100 ML 100 ML IV PRN ×2 (00:51→08:41)
[2017-08-17] MEDS: ceFAZolin 2 GM/50 ML 2 GM/50 ML BAG IV SCH (02:04)
[2017-08-17 04:37] LABS: BASOPHILS % (AUTO) 0.6 %; EOSINOPHILS # (AUTO) 0.1 10^3/uL (0.0-0.7); EOSINOPHILS % (AUTO) 1.8 %; HGB - HEMOGLOBIN 7.4 g/dL (12.0-16.0); LYMPHOCYTES # (AUTO) 1.4 10^3/uL (1.5-3.5); LYMPHOCYTES % (AUTO) 26.4 %; MEAN CORPUSCULAR HEMOGLOBIN 31.4 pg (27.0-31.0); MEAN CORPUSCULAR HGB CONC 33.3 g/dL (32.0-36.0); MEAN CORPUSCULAR VOLUME 94.4 fL (81.0-99.0); MONOCYTES # (AUTO) 0.6 10^3/uL (0.0-1.0); MONOCYTES % (AUTO) 10.2 %; NEUTROPHILS # (AUTO) 3.3 10^3/uL (1.5-6.6); PLT - PLATELET COUNT 93 10^3/uL (130-450); RED BLOOD COUNT 2.35 10^6/uL (4.20-5.40); RED CELL DISTRIBUTION WIDTH 14.4 % (12.0-15.0); WHITE BLOOD COUNT 5.5 x10^3/uL (4.8-10.8)
[2017-08-17 04:48] LABS: ALBUMIN 2.8 g/dL (3.2-5.5); ALBUMIN/GLOBULIN RATIO 1.4 (1.0-2.2); BILIRUBIN,TOTAL 0.5 mg/dL (0.2-1.0); CALCIUM 8.3 mg/dL (8.5-10.3); CREATININE 0.9 mg/dL (0.4-1.0); MAGNESIUM 1.8 mg/dL (1.7-2.8); TOTAL PROTEIN 4.8 g/dL (6.7-8.2)
[2017-08-17] MEDS: LEVOTHYROXINE 25 MCG TABLET PO SCH (06:28)
[2017-08-17] MEDS: MORPHINE 2 MG/ML SYRINGE IVP PRN ×3 (06:33→21:35)
[2017-08-17] MEDS ORDERED: SODIUM CHLORIDE 0.9% 250 ML IV ONE (10:14)
[2017-08-17] MEDS: POLYETHYLENE GLYCOL 3350 17 GM PACKET PO SCH (11:15)
[2017-08-17] MEDS: ASPIRIN EC 325 MG TABLET PO SCH ×2 (11:16→16:47)
[2017-08-17] MEDS: METOPROLOL SUCCINATE 25 MG TABLET PO SCH (11:16)
--- NOTE | 2017-08-17 11:19 | PROVIDER PROGRESS NOTE ---
Subjective - Prog Note Date Prog Note Date: 08/17/17 Prog Note Time: 11:17 - Subjective Pt reports feeling: Improved (Usual post op pain.) Objective - Vital Signs/Intake & Output Vital Signs: Vital Signs x48h Temp Pulse Resp BP Pulse Ox 08/17/17 08:20 36.9 C 75 20 124/73 91 L 08/17/17 04:41 37.1 C 66 20 115/44 L 94 Intake & Output: Intake & Output 08/14/17 08/15/17 08/16/17 08/17/17 23:59 23:59 23:59 23:59 Intake Total 1880 1450 Output Total 65 100 Balance 1815 1350 - Lab Results Fish Bones: 08/17/17 04:20 08/17/17 04:20 Other Labs: Lab Results x24hrs 08/17/17 08/17/17 08/17/17 Range/Units 07:31 04:20 04:20 WBC 5.5 (4.8-10.8) x10^3/uL RBC 2.35 L (4.20-5.40) 10^6/uL Hgb 7.4 L (12.0-16.0) g/dL Hct 22.2 L (37.0-47.0) % MCV 94.4 (81.0-99.0) fL MCH 31.4 H (27.0-31.0) pg MCHC 33.3 (32.0-36.0) g/dL RDW 14.4 (12.0-15.0) % Plt Count 93 L (130-450) 10^3/uL MPV 8.0 (7.9-10.8) fL Neut # (Auto) 3.3 (1.5-6.6) 10^3/uL Lymph # (Auto) 1.4 L (1.5-3.5) 10^3/uL [place] # (Auto) 0.6 (0.0-1.0) 10^3/uL Eos # (Auto) 0.1 (0.0-0.7) 10^3/uL Baso # (Auto) 0.0 (0.0-0.1) 10^3/uL Absolute Nucleated RBC 0.00 x10^3/uL Nucleated RBC % 0.0 /100WBC Sodium 136 (135-145) mmol/L Potassium 4.2 (3.5-5.0) mmol/L Chloride 107 (101-111) mmol/L Carbon Dioxide 23 (21-32) mmol/L Anion Gap 6.0 (6-13) BUN 28 H (6-20) mg/dL Creatinine 0.9 (0.4-1.0) mg/dL Estimated GFR (MDRD) 59 L (>89) Glucose 116 H (70-100) mg/dL Calcium 8.3 L (8.5-10.3) mg/dL Magnesium 1.8 (1.7-2.8) mg/dL Total Bilirubin 0.5 (0.2-1.0) mg/dL AST 27 (10-42) IU/L ALT 12 (10-60) IU/L Alkaline Phosphatase 27 L (42-121) IU/L Total Protein 4.8 L (6.7-8.2) g/dL Albumin 2.8 L (3.2-5.5) g/dL Globulin 2.0 L (2.1-4.2) g/dL Albumin/Globulin Ratio 1.4 (1.0-2.2) TSH (0.34-5.60) uIU/mL Blood Type Recheck A POSITIVE 08/17/17 08/16/17 Range/Units 04:20 19:59 WBC (4.8-10.8) x10^3/uL RBC (4.20-5.40) 10^6/uL Hgb 8.5 L (12.0-16.0) g/dL Hct 25.5 L (37.0-47.0) % MCV (81.0-99.0) fL MCH (27.0-31.0) pg MCHC (32.0-36.0) g/dL RDW (12.0-15.0) % Plt Count (130-450) 10^3/uL MPV (7.9-10.8) fL Neut # (Auto) (1.5-6.6) 10^3/uL Lymph # (Auto) (1.5-3.5) 10^3/uL [place] # (Auto) (0.0-1.0) 10^3/uL Eos # (Auto) (0.0-0.7) 10^3/uL Baso # (Auto) (0.0-0.1) 10^3/uL Absolute Nucleated RBC x10^3/uL Nucleated RBC % /100WBC Sodium (135-145) mmol/L Potassium (3.5-5.0) mmol/L Chloride (101-111) mmol/L Carbon Dioxide (21-32) mmol/L Anion Gap (6-13) BUN (6-20) mg/dL Creatinine (0.4-1.0) mg/dL Estimated GFR (MDRD) (>89) Glucose (70-100) mg/dL Calcium (8.5-10.3) mg/dL Magnesium (1.7-2.8) mg/dL Total Bilirubin (0.2-1.0) mg/dL AST (10-42) IU/L ALT (10-60) IU/L Alkaline Phosphatase (42-121) IU/L Total Protein (6.7-8.2) g/dL Albumin (3.2-5.5) g/dL Globulin (2.1-4.2) g/dL Albumin/Globulin Ratio (1.0-2.2) TSH 3.38 (0.34-5.60) uIU/mL Blood Type Recheck - Other Results/Comments Other Results/Comments: EXAM: Left hip: Minimal lateral hip tenderness. Less pain with hip rotation. Moves toes well. Sensation intact. Good cap filling Assessment/Plan - Problem List (1) Closed left hip fracture Impression: Satis post op PLAN: Mobilize as tolerated in PT. Consider transfusion. Qualifiers: Encounter type: initial encounter Qualified Code(s): S72.002A - Fracture of unspecified part of neck of left femur, initial encounter for closed fracture
--- NOTE | 2017-08-17 14:41 | PROVIDER PROGRESS NOTE ---
Subjective - Prog Note Date Prog Note Date: 08/17/17 Prog Note Time: 14:38 (late entry; seen 8am) - Subjective Pt reports feeling: Improved (it only hurts when you press on it) Current Medications - Current Medications Current Medications: Active Medications Generic Name Dose Route Start Last Admin Trade Name Freq PRN Reason Stop Dose Admin Acetaminophen 650 - 975 mg 08/16/17 11:26 Tylenol PO Q4HR PRN PAIN Aspirin 325 mg 08/16/17 17:45 08/17/17 11:16 Ecotrin PO 325 mg BIDWM MARIA C Administration Atorvastatin Calcium 10 mg 08/16/17 21:00 08/16/17 20:11 Lipitor PO 10 mg QPM [facility] Administration Docusate Sodium 100 mg 08/16/17 11:26 Colace 100mg Capsule PO BID PRN Constipation Sodium Chloride 1,000 mls @ 100 mls/hr 08/16/17 12:00 08/17/17 11:15 Normal Saline 0.9% IV 100 mls/hr .Q10H [facility] Administration Levothyroxine Sodium 50 mcg 08/17/17 07:00 08/17/17 06:28 Synthroid PO 50 mcg QDAC [facility] Administration Metoprolol Succinate 25 mg 08/16/17 16:00 08/17/17 11:16 Toprol Xl PO 25 mg DAILY [facility] Administration Morphine Sulfate 2 mg 08/16/17 05:36 08/17/17 08:43 Morphine IVP 2 mg Q2H PRN Administration Pain 8 to 10 Morphine Sulfate 2 mg 08/16/17 11:26 Morphine IVP Q2HR PRN PAIN Ondansetron HCl 4 mg 08/16/17 05:36 Zofran Inj IVP Q6HR PRN Nausea / Vomiting Ondansetron HCl 4 mg 08/16/17 11:26 Zofran Inj IVP Q6HR PRN Nausea / Vomiting Oxycodone HCl 5 mg 08/17/17 14:48 Roxicodone PO Q4HR PRN PAIN Polyethylene Glycol 17 gm 08/16/17 09:00 08/17/17 11:15 Miralax PO 17 gm DAILY [facility] Administration Prochlorperazine Edisylate 10 mg 08/16/17 11:26 Compazine Inj IVP Q6HR PRN Nausea / Vomiting Senna 17.2 mg 08/16/17 11:26 Senokot PO Q12H PRN Constipation Sodium Chloride 10 ml 08/16/17 17:00 08/17/17 11:36 Normal Saline Flush 0.9% IVP Not Given 0100,0900,1700 [facility] C Sodium Chloride 10 ml 08/16/17 11:26 Normal Saline Flush 0.9% IVP PRN PRN NEEDED PER PROVIDER ORDERS Aspirin 81 mg PO DAILY 06/13/17 Levothyroxine Sodium [Synthroid] 50 mcg PO QDAC 08/16/17 Metoprolol Succinate [Toprol Xl] 25 mg PO DAILY 08/16/17 Simvastatin [Simvastatin] 20 mg PO QPM 08/16/17 Objective - Vital Signs/Intake & Output Reviewed Vital Signs: Yes Vital Signs: Vital Signs x48h Temp Pulse Pulse Pulse Resp BP BP 08/17/17 13:59 37.1 C 69 18 140/49 H 08/17/17 13:38 36.6 C 69 16 143/46 H 08/17/17 13:26 36.6 C 69 18 143/46 H 08/17/17 10:18 66 08/17/17 08:20 36.9 C 75 20 124/73 BP Pulse Ox 08/17/17 13:59 08/17/17 13:38 08/17/17 13:26 94 08/17/17 10:18 126/48 L 08/17/17 08:20 91 L Intake & Output: Intake & Output 08/14/17 08/15/17 08/16/17 08/17/17 23:59 23:59 23:59 23:59 Intake Total 1880 1700 Output Total 65 100 Balance 1815 1600 - Objective General Appearance: positive: No acute distress (lying in bed, no distress, seems a little hard of hearing, looks comfortable) Eyes Bilateral: positive: Other Respiratory: positive: Chest non-tender, No respiratory distress, Breath sounds nml (decreased at bases, not great inspiratory effort, RA 91-92% w/ deep breath Sa02) Cardiovascular: positive: Regular rate & rhythm, No murmur Abdomen: positive: Nml bowel sounds, No distention. negative: Tenderness Skin: positive: Warm, Dry (no LE edema) Extremities: positive: Pedal edema (no appreciable LE edema) - Lab Results Fish Bones: 08/18/17 04:46 08/18/17 04:46 Other Labs: Lab Results x24hrs 08/17/17 08/17/17 08/17/17 Range/Units 07:31 04:20 04:20 WBC 5.5 (4.8-10.8) x10^3/uL RBC 2.35 L (4.20-5.40) 10^6/uL Hgb 7.4 L (12.0-16.0) g/dL Hct 22.2 L (37.0-47.0) % MCV 94.4 (81.0-99.0) fL MCH 31.4 H (27.0-31.0) pg MCHC 33.3 (32.0-36.0) g/dL RDW 14.4 (12.0-15.0) % Plt Count 93 L (130-450) 10^3/uL MPV 8.0 (7.9-10.8) fL Neut # (Auto) 3.3 (1.5-6.6) 10^3/uL Lymph # (Auto) 1.4 L (1.5-3.5) 10^3/uL [place] # (Auto) 0.6 (0.0-1.0) 10^3/uL Eos # (Auto) 0.1 (0.0-0.7) 10^3/uL Baso # (Auto) 0.0 (0.0-0.1) 10^3/uL Absolute Nucleated RBC 0.00 x10^3/uL Nucleated RBC % 0.0 /100WBC Sodium 136 (135-145) mmol/L Potassium 4.2 (3.5-5.0) mmol/L Chloride 107 (101-111) mmol/L Carbon Dioxide 23 (21-32) mmol/L Anion Gap 6.0 (6-13) BUN 28 H (6-20) mg/dL Creatinine 0.9 (0.4-1.0) mg/dL Estimated GFR (MDRD) 59 L (>89) Glucose 116 H (70-100) mg/dL Calcium 8.3 L (8.5-10.3) mg/dL Magnesium 1.8 (1.7-2.8) mg/dL Total Bilirubin 0.5 (0.2-1.0) mg/dL AST 27 (10-42) IU/L ALT 12 (10-60) IU/L Alkaline Phosphatase 27 L (42-121) IU/L Total Protein 4.8 L (6.7-8.2) g/dL Albumin 2.8 L (3.2-5.5) g/dL Globulin 2.0 L (2.1-4.2) g/dL Albumin/Globulin Ratio 1.4 (1.0-2.2) TSH (0.34-5.60) uIU/mL Blood Type Recheck A POSITIVE 08/17/17 08/16/17 Range/Units 04:20 19:59 WBC (4.8-10.8) x10^3/uL RBC (4.20-5.40) 10^6/uL Hgb 8.5 L (12.0-16.0) g/dL Hct 25.5 L (37.0-47.0) % MCV (81.0-99.0) fL MCH (27.0-31.0) pg MCHC (32.0-36.0) g/dL RDW (12.0-15.0) % Plt Count (130-450) 10^3/uL MPV (7.9-10.8) fL Neut # (Auto) (1.5-6.6) 10^3/uL Lymph # (Auto) (1.5-3.5) 10^3/uL [place] # (Auto) (0.0-1.0) 10^3/uL Eos # (Auto) (0.0-0.7) 10^3/uL Baso # (Auto) (0.0-0.1) 10^3/uL Absolute Nucleated RBC x10^3/uL Nucleated RBC % /100WBC Sodium (135-145) mmol/L Potassium (3.5-5.0) mmol/L Chloride (101-111) mmol/L Carbon Dioxide (21-32) mmol/L Anion Gap (6-13) BUN (6-20) mg/dL Creatinine (0.4-1.0) mg/dL Estimated GFR (MDRD) (>89) Glucose (70-100) mg/dL Calcium (8.5-10.3) mg/dL Magnesium (1.7-2.8) mg/dL Total Bilirubin (0.2-1.0) mg/dL AST (10-42) IU/L ALT (10-60) IU/L Alkaline Phosphatase (42-121) IU/L Total Protein (6.7-8.2) g/dL Albumin (3.2-5.5) g/dL Globulin (2.1-4.2) g/dL Albumin/Globulin Ratio (1.0-2.2) TSH 3.38 (0.34-5.60) uIU/mL Blood Type Recheck Assessment/Plan - Problem List (1) Closed left hip fracture Impression: Day 1 post op for mechanical fall (she doesnt recall how ocurred) continues PT/OT For pain, tylenol, prn oxycodone (added oxycodone w/o tylenol) VTE proph; Foot pups and ASA (full dose) per ortho Mcguire should be out tomorrow (re: ? reason for fall, tele no findings, Echo, tops normal, TSH nl 2) Acute blood loss anemia, w/ reported 100cc/hr UOP overnight (8 hrs) w/ IVF at Per Op note, only 50 cc EBL Hgb 10.6 at admit (8.7 after hydration). 7.5 today got 1 unit PRBC per i/o Hct 32 at admit 26 7/4. 22.6 today; given her small size and IVF at 100 cc/ hr, and no evident hematoma, hemodynamically stable (w/ very adequate BP) this is most c/w dilution, but Dr Pérez did order 1 u PRBC; will reeval h/h in am; no evident bleeding 3) HTN; On metoprolol (Toprol 25 ) at home, continue metoprolol stop prn clonidine, no indication for acute lowering in hospiital (in absence of EOD per recs) Immediately post op , I suspect BP elevation would more likely "reactive' r/t pain; will follow 4) Known liver tumor (benign) Had Mary appt in past, MRI was recommended ? if Celeste Guardado elected w/ pt not to pursuethe MRI 5) Hypothyroidsim on LT4 at home, stable TSH 3.38 (checked due to uncertain circumstatnces of fall) , continues 50 mcg daily Qualifiers: Encounter type: initial encounter Qualified Code(s): S72.002A - Fracture of unspecified part of neck of left femur, initial encounter for closed fracture
[2017-08-17] MEDS: ACETAMINOPHEN 325 MG TABLET PO PRN (16:48)
[2017-08-17] MEDS: oxyCODONE 5 MG TABLET PO PRN (17:46)
[2017-08-17] MEDS: ATORVASTATIN 10 MG TABLET PO SCH (20:14)
[2017-08-18] MEDS: oxyCODONE 5 MG TABLET PO PRN ×2 (00:49→20:58)
[2017-08-18] MEDS: SODIUM CHLORIDE FLUSH 0.9% 10 ML SYRINGE IVP SCH ×3 (02:39→16:19)
[2017-08-18 05:26] LABS: BASOPHILS % (AUTO) 0.8 %; EOSINOPHILS # (AUTO) 0.3 10^3/uL (0.0-0.7); HGB - HEMOGLOBIN 7.9 g/dL (12.0-16.0); LYMPHOCYTES # (AUTO) 1.3 10^3/uL (1.5-3.5); LYMPHOCYTES % (AUTO) 22.5 %; MEAN CORPUSCULAR HEMOGLOBIN 30.8 pg (27.0-31.0); MEAN CORPUSCULAR VOLUME 93.2 fL (81.0-99.0); MEAN PLATELET VOLUME 8.5 fL (7.9-10.8); MONOCYTES # (AUTO) 0.7 10^3/uL (0.0-1.0); MONOCYTES % (AUTO) 11.4 %; NEUTROPHILS # (AUTO) 3.6 10^3/uL (1.5-6.6); NEUTROPHILS % (AUTO) 60.3 %; PLT - PLATELET COUNT 88 10^3/uL (130-450); RED BLOOD COUNT 2.58 10^6/uL (4.20-5.40); RED CELL DISTRIBUTION WIDTH 15.3 % (12.0-15.0); WHITE BLOOD COUNT 5.9 x10^3/uL (4.8-10.8)
[2017-08-18 05:29] LABS: ALBUMIN 2.5 g/dL (3.2-5.5); ALBUMIN/GLOBULIN RATIO 1.3 (1.0-2.2); ALKALINE PHOSPHATASE 31 IU/L (42-121); ALT ALANINE AMINOTRANSFERASE < 10 IU/L (10-60); AST ASPARTATE AMINOTRANSFERASE 27 IU/L (10-42); BILIRUBIN,TOTAL 1.1 mg/dL (0.2-1.0); BUN - BLOOD UREA NITROGEN 20 mg/dL (6-20); CALCIUM 7.8 mg/dL (8.5-10.3); CARBON DIOXIDE - CO2 20 mmol/L (21-32); CHLORIDE 109 mmol/L (101-111); CREATININE 0.6 mg/dL (0.4-1.0); GFR - MDRD 95 (>89); GLUCOSE 97 mg/dL (70-100); SODIUM 134 mmol/L (135-145); TOTAL PROTEIN 4.5 g/dL (6.7-8.2)
[2017-08-18] MEDS: LEVOTHYROXINE 25 MCG TABLET PO SCH (06:49)
[2017-08-18] MEDS: SODIUM CHLORIDE 0.9% 1,000 ML IV SCH (07:52)
[2017-08-18] MEDS: ASPIRIN EC 325 MG TABLET PO SCH ×2 (10:05→16:19)
[2017-08-18] MEDS: POLYETHYLENE GLYCOL 3350 17 GM PACKET PO SCH (10:05)
[2017-08-18] MEDS: METOPROLOL SUCCINATE 25 MG TABLET PO SCH (10:05)
[2017-08-18] MEDS ORDERED: KETOROLAC 15 MG/ML VIAL IVP ONE (10:14)
--- NOTE | 2017-08-18 10:17 | PROVIDER PROGRESS NOTE ---
Subjective - Prog Note Date Prog Note Date: 08/18/17 Prog Note Time: 08:00 - Subjective Subjective: Pt reports feeling: No change ("give me a minute" (to think of the year),, moriah is president, cant say where is or circumstances of fall (got 2 mg morphine earlier) denies SOB. "I dont want to cough ,because I cant get my hand up in time denies nausea, pain "ok if I dont move" RE the many bruises on her shins. "I just hit something and they bruise; denies other falls RN contacted at 4pm of BP 171/54. I rechecked at ~ 5:10 when pt up in chair eating; 145/60; no intervention needed Current Medications - Current Medications Current Medications: Active Medications Generic Name Dose Route Start Last Admin Trade Name Freq PRN Reason Stop Dose Admin Acetaminophen 650 - 975 mg 08/16/17 11:26 08/17/17 16:48 Tylenol PO 975 mg Q4HR PRN Administration PAIN Aspirin 325 mg 08/16/17 17:45 08/18/17 10:05 Ecotrin PO 325 mg BIDWM MARIA C Administration Atorvastatin Calcium 10 mg 08/16/17 21:00 08/17/17 20:14 Lipitor PO 10 mg QPM MARIA C Administration Docusate Sodium 100 mg 08/16/17 11:26 Colace 100mg Capsule PO BID PRN Constipation Ketorolac Tromethamine 15 mg 08/18/17 10:14 Toradol Inj (15mg) IVP 08/18/17 10:15 ONCE ONE Levothyroxine Sodium 50 mcg 08/17/17 07:00 08/18/17 06:49 Synthroid PO 50 mcg QDAC MARIA C Administration Metoprolol Succinate 25 mg 08/16/17 16:00 08/18/17 10:05 Toprol Xl PO 25 mg DAILY MARIA C Administration Ondansetron HCl 4 mg 08/16/17 05:36 Zofran Inj IVP Q6HR PRN Nausea / Vomiting Ondansetron HCl 4 mg 08/16/17 11:26 Zofran Inj IVP Q6HR PRN Nausea / Vomiting Oxycodone HCl 5 mg 08/17/17 14:48 08/18/17 00:49 Roxicodone PO 5 mg Q4HR PRN Administration PAIN Polyethylene Glycol 17 gm 08/16/17 09:00 08/18/17 10:05 Miralax PO 17 gm DAILY MARIA C Administration Prochlorperazine Edisylate 10 mg 08/16/17 11:26 Compazine Inj IVP Q6HR PRN Nausea / Vomiting Senna 17.2 mg 08/16/17 11:26 Senokot PO Q12H PRN Constipation Sodium Chloride 10 ml 08/16/17 17:00 08/18/17 07:39 Normal Saline Flush 0.9% IVP Not Given 0100,0900,1700 MARIA C Sodium Chloride 10 ml 08/16/17 11:26 08/17/17 21:35 Normal Saline Flush 0.9% IVP 10 ml PRN PRN Administration NEEDED PER PROVIDER ORDERS Aspirin 81 mg PO DAILY 06/13/17 Levothyroxine Sodium [Synthroid] 50 mcg PO QDAC 08/16/17 Metoprolol Succinate [Toprol Xl] 25 mg PO DAILY 08/16/17 Simvastatin [Simvastatin] 20 mg PO QPM 08/16/17 Objective - Vital Signs/Intake & Output Reviewed Vital Signs: Yes Vital Signs: Vital Signs x48h Temp Pulse Resp BP Pulse Ox 08/18/17 09:59 37.8 C H 71 18 118/47 L 98 08/18/17 05:02 68 18 159/51 H 100 Intake & Output: Intake & Output 08/15/17 08/16/17 08/17/17 08/18/17 23:59 23:59 23:59 23:59 Intake Total 1880 3205 1303.333 Output Total 65 550 200 Balance 1815 2655 1103.333 - Objective General Appearance: positive: No acute distress (in bed being fed (asked [employer] MAN if was able to feed self, he stated she was unable to state her year of yesterday)) Eyes Bilateral: positive: EOMI Respiratory: positive: Chest non-tender, No respiratory distress. negative: Breath sounds nml (unlabored resps at rest w/ 2 L NC, occas cough CTA upper lobes, decreased at bases, no rhonchi occas late insp crackle bases) Cardiovascular: positive: Regular rate & rhythm, Systolic murmur (2-3/6 SM, no LE edema, plexi pulses bilaterally multiple ecchymotic areas bilat shins). negative: Tachycardia Abdomen: positive: Nml bowel sounds, No distention. negative: Tenderness Skin: positive: Warm, Dry Extremities: negative: Nml appearance (plexipulses on bilaterally, multiple ecchyomisis bilat shins, left hip no hematoma, dressing dry/ intact), Pedal edema Neurologic/Psychiatric: positive: Disoriented to place, Disoriented to time ( see above under S: (did get morphine earlier); is appropriate, but not fully oriented. able to make needs known, no unilateral deficit) - Lab Results Fish Bones: 08/18/17 04:46 08/18/17 04:46 Other Labs: Lab Results x24hrs 08/18/17 08/18/17 Range/Units 04:46 04:46 WBC 5.9 (4.8-10.8) x10^3/uL RBC 2.58 L (4.20-5.40) 10^6/uL Hgb 7.9 L (12.0-16.0) g/dL Hct 24.1 L (37.0-47.0) % MCV 93.2 (81.0-99.0) fL MCH 30.8 (27.0-31.0) pg MCHC 33.0 (32.0-36.0) g/dL RDW 15.3 H (12.0-15.0) % Plt Count 88 L (130-450) 10^3/uL MPV 8.5 (7.9-10.8) fL Neut # (Auto) 3.6 (1.5-6.6) 10^3/uL Lymph # (Auto) 1.3 L (1.5-3.5) 10^3/uL [place] # (Auto) 0.7 (0.0-1.0) 10^3/uL Eos # (Auto) 0.3 (0.0-0.7) 10^3/uL Baso # (Auto) 0.0 (0.0-0.1) 10^3/uL Absolute Nucleated RBC 0.00 x10^3/uL Nucleated RBC % 0.0 /100WBC Sodium 134 L (135-145) mmol/L Potassium 3.7 (3.5-5.0) mmol/L Chloride 109 (101-111) mmol/L Carbon Dioxide 20 L (21-32) mmol/L Anion Gap 5.0 L (6-13) BUN 20 (6-20) mg/dL Creatinine 0.6 (0.4-1.0) mg/dL Estimated GFR (MDRD) 95 (>89) Glucose 97 (70-100) mg/dL Calcium 7.8 L (8.5-10.3) mg/dL Total Bilirubin 1.1 H (0.2-1.0) mg/dL AST 27 (10-42) IU/L ALT < 10 L (10-60) IU/L Alkaline Phosphatase 31 L (42-121) IU/L Total Protein 4.5 L (6.7-8.2) g/dL Albumin 2.5 L (3.2-5.5) g/dL Globulin 2.0 L (2.1-4.2) g/dL Albumin/Globulin Ratio 1.3 (1.0-2.2) Assessment/Plan - Problem List (1) Closed left hip fracture Impression: (1) Closed left hip fracture Impression: Day 2 post op for mechanical fall (she doesnt recall how ocurred) continues PT/OT; Doing better today, up in chair. For pain, tylenol, prn oxycodone (added oxycodone w/o tylenol) D/C'd morphine, added toradol due to some confusion this am; (much improved and able to work with PT) VTE proph; Foot pups and ASA (full dose) per ortho Mcguire out (re: ? reason for fall, tele no findings, Echo (? looked for result, but not clear was ordered, tops normal, TSH nl 3.38) 2) Acute blood loss anemia, Stable; s/p 1 u PRBC 7/6 Per Op note, only 50 cc EBL Hgb 10.6 at admit (8.7 after hydration). 7.9/24.1 today Hct 32 at admit 26 7/4. 22.6 today; given her small size and IVF at 100 cc/ hr, and no evident hematoma, hemodynamically stable (w/ very adequate BP) this relatively low h/h post RBC's is most c/w dilution, but w/ ? valvular d/o, ( echo not done); did transfuse will reeval h/h in am; no evident bleeding 3) HTN; On metoprolol (Toprol 25 ) at home, continue metoprolol (as above; rechecked isolated BP incrase of 171/54/ 145/60 (and 135/47 at 6:40); resolved independent of intervention) stopped prn clonidine 08/17, no indication for acute lowering in hospiital (in absence of EOD per recs) Immediately post op , I suspect BP elevation would more likely "reactive' r/t pain; will follow 4) Known liver tumor (benign) Had [facility] appt in past, MRI was recommended ? if Celeste Guardado elected w/ pt not to pursuethe MRI 5) Hypothyroidsim on LT4 at home, stable TSH 3.38 (checked due to uncertain circumstatnces of fall) , continues 50 mcg daily 6) Murmur; no echo done (appears was not ordered for systolic murmur. (would not have changed need for surgery; should get outpatient echo if has not to eval murmur (anna in light of her fall) Qualifiers: Encounter type: initial encounter Qualified Code(s): S72.002A - Fracture of unspecified part of neck of left femur, initial encounter for closed fracture
--- NOTE | 2017-08-18 12:24 | PROVIDER PROGRESS NOTE ---
Subjective - Prog Note Date Prog Note Date: 08/18/17 Prog Note Time: 12:22 - Subjective Pt reports feeling: Improved (Patient sitting in chair eating breakfast. No complaints) Objective - Vital Signs/Intake & Output Vital Signs: Vital Signs x48h Temp Pulse Resp BP Pulse Ox 08/18/17 09:59 37.8 C H 71 18 118/47 L 98 08/18/17 05:02 68 18 159/51 H 100 Intake & Output: Intake & Output 08/15/17 08/16/17 08/17/17 08/18/17 23:59 23:59 23:59 23:59 Intake Total 1880 3205 1528.830 Output Total 65 550 200 Balance 1815 2655 1328.830 - Lab Results Fish Bones: 08/18/17 04:46 08/18/17 04:46 Other Labs: Lab Results x24hrs 08/18/17 08/18/17 Range/Units 04:46 04:46 WBC 5.9 (4.8-10.8) x10^3/uL RBC 2.58 L (4.20-5.40) 10^6/uL Hgb 7.9 L (12.0-16.0) g/dL Hct 24.1 L (37.0-47.0) % MCV 93.2 (81.0-99.0) fL MCH 30.8 (27.0-31.0) pg MCHC 33.0 (32.0-36.0) g/dL RDW 15.3 H (12.0-15.0) % Plt Count 88 L (130-450) 10^3/uL MPV 8.5 (7.9-10.8) fL Neut # (Auto) 3.6 (1.5-6.6) 10^3/uL Lymph # (Auto) 1.3 L (1.5-3.5) 10^3/uL [place] # (Auto) 0.7 (0.0-1.0) 10^3/uL Eos # (Auto) 0.3 (0.0-0.7) 10^3/uL Baso # (Auto) 0.0 (0.0-0.1) 10^3/uL Absolute Nucleated RBC 0.00 x10^3/uL Nucleated RBC % 0.0 /100WBC Sodium 134 L (135-145) mmol/L Potassium 3.7 (3.5-5.0) mmol/L Chloride 109 (101-111) mmol/L Carbon Dioxide 20 L (21-32) mmol/L Anion Gap 5.0 L (6-13) BUN 20 (6-20) mg/dL Creatinine 0.6 (0.4-1.0) mg/dL Estimated GFR (MDRD) 95 (>89) Glucose 97 (70-100) mg/dL Calcium 7.8 L (8.5-10.3) mg/dL Total Bilirubin 1.1 H (0.2-1.0) mg/dL AST 27 (10-42) IU/L ALT < 10 L (10-60) IU/L Alkaline Phosphatase 31 L (42-121) IU/L Total Protein 4.5 L (6.7-8.2) g/dL Albumin 2.5 L (3.2-5.5) g/dL Globulin 2.0 L (2.1-4.2) g/dL Albumin/Globulin Ratio 1.3 (1.0-2.2) - Other Results/Comments Other Results/Comments: EXAM: Mild pain with hip rotation. Moves toes well. Sensation intact Assessment/Plan - Problem List (1) Closed left hip fracture Impression: Satis post op PLAN: Mobilize as tolerated. To SNF SUn/Mon for rehab. Walker ambulate -WBAT on left. RTC in 2 weeks for conor out and XR. Qualifiers: Encounter type: initial encounter Qualified Code(s): S72.002A - Fracture of unspecified part of neck of left femur, initial encounter for closed fracture
[2017-08-18] MEDS: ACETAMINOPHEN 325 MG TABLET PO PRN (16:19)
[2017-08-18] MEDS: ATORVASTATIN 10 MG TABLET PO SCH (20:58)
[2017-08-19 06:23] LABS: BASOPHILS % (AUTO) 0.7 %; EOSINOPHILS # (AUTO) 0.3 10^3/uL (0.0-0.7); EOSINOPHILS % (AUTO) 4.7 %; HGB - HEMOGLOBIN 7.5 g/dL (12.0-16.0); LYMPHOCYTES # (AUTO) 1.8 10^3/uL (1.5-3.5); LYMPHOCYTES % (AUTO) 31.6 %; MEAN CORPUSCULAR HEMOGLOBIN 31.3 pg (27.0-31.0); MEAN CORPUSCULAR HGB CONC 33.9 g/dL (32.0-36.0); MEAN CORPUSCULAR VOLUME 92.2 fL (81.0-99.0); MEAN PLATELET VOLUME 8.5 fL (7.9-10.8); MONOCYTES # (AUTO) 0.6 10^3/uL (0.0-1.0); MONOCYTES % (AUTO) 9.9 %; NEUTROPHILS # (AUTO) 3.1 10^3/uL (1.5-6.6); NEUTROPHILS % (AUTO) 53.1 %; PLT - PLATELET COUNT 99 10^3/uL (130-450); RED BLOOD COUNT 2.39 10^6/uL (4.20-5.40); RED CELL DISTRIBUTION WIDTH 15.2 % (12.0-15.0); WHITE BLOOD COUNT 5.8 x10^3/uL (4.8-10.8)
[2017-08-19 06:30] LABS: ALBUMIN 2.2 g/dL (3.2-5.5); ALKALINE PHOSPHATASE 37 IU/L (42-121); ALT ALANINE AMINOTRANSFERASE < 10 IU/L (10-60); AST ASPARTATE AMINOTRANSFERASE 25 IU/L (10-42); BILIRUBIN,TOTAL 0.6 mg/dL (0.2-1.0); BUN - BLOOD UREA NITROGEN 21 mg/dL (6-20); CALCIUM 7.9 mg/dL (8.5-10.3); CARBON DIOXIDE - CO2 21 mmol/L (21-32); CHLORIDE 108 mmol/L (101-111); CREATININE 0.6 mg/dL (0.4-1.0); GFR - MDRD 95 (>89); GLUCOSE 89 mg/dL (70-100); SODIUM 134 mmol/L (135-145); TOTAL PROTEIN 4.4 g/dL (6.7-8.2)
[2017-08-19] MEDS: oxyCODONE 5 MG TABLET PO PRN ×3 (06:38→20:44)
[2017-08-19] MEDS: LEVOTHYROXINE 25 MCG TABLET PO SCH (06:38)
[2017-08-19] MEDS: SODIUM CHLORIDE FLUSH 0.9% 10 ML SYRINGE IVP SCH ×3 (06:40→16:14)
--- NOTE | 2017-08-19 08:26 | PROVIDER PROGRESS NOTE ---
Subjective - Prog Note Date Prog Note Date: 08/19/17 Prog Note Time: 08:24 - Subjective Subjective: If I dont move it doesnt hurt here because of fall, still cant state circumstance of fall Moved here from [place] to live w/ son "the woman who was supposed to be taking care of me in [place] wasnt doing a good job" no nausea, no sob Current Medications - Current Medications Current Medications: Active Medications Generic Name Dose Route Start Last Admin Trade Name Dwaine PRN Reason Stop Dose Admin Acetaminophen 650 - 975 mg 08/16/17 11:26 08/18/17 16:19 Tylenol PO 975 mg Q4HR PRN Administration PAIN Aspirin 325 mg 08/16/17 17:45 08/18/17 16:19 Ecotrin PO 325 mg BIDWM MARIA C Administration Atorvastatin Calcium 10 mg 08/16/17 21:00 08/18/17 20:58 Lipitor PO 10 mg QPM MARIA C Administration Docusate Sodium 100 mg 08/16/17 11:26 Colace 100mg Capsule PO BID PRN Constipation Levothyroxine Sodium 50 mcg 08/17/17 07:00 08/19/17 06:38 Synthroid PO 50 mcg QDAC MARIA C Administration Metoprolol Succinate 25 mg 08/16/17 16:00 08/18/17 10:05 Toprol Xl PO 25 mg DAILY MARIA C Administration Ondansetron HCl 4 mg 08/16/17 05:36 Zofran Inj IVP Q6HR PRN Nausea / Vomiting Ondansetron HCl 4 mg 08/16/17 11:26 Zofran Inj IVP Q6HR PRN Nausea / Vomiting Oxycodone HCl 5 mg 08/17/17 14:48 08/19/17 06:38 Roxicodone PO 5 mg Q4HR PRN Administration PAIN Polyethylene Glycol 17 gm 08/16/17 09:00 08/18/17 10:05 Miralax PO 17 gm DAILY MARIA C Administration Senna 17.2 mg 08/16/17 11:26 Senokot PO Q12H PRN Constipation Sodium Chloride 10 ml 08/16/17 17:00 08/19/17 06:40 Normal Saline Flush 0.9% IVP 10 ml 0100,0900,1700 MARIA C Administration Sodium Chloride 10 ml 08/16/17 11:26 08/17/17 21:35 Normal Saline Flush 0.9% IVP 10 ml PRN PRN Administration NEEDED PER PROVIDER ORDERS Aspirin 81 mg PO DAILY 06/13/17 Levothyroxine Sodium [Synthroid] 50 mcg PO QDAC 08/16/17 Metoprolol Succinate [Toprol Xl] 25 mg PO DAILY 08/16/17 Simvastatin [Simvastatin] 20 mg PO QPM 08/16/17 Objective - Vital Signs/Intake & Output Reviewed Vital Signs: Yes Vital Signs: Vital Signs x48h Temp Pulse Resp BP Pulse Ox 08/19/17 07:41 37.1 C 74 14 147/51 H 96 08/19/17 05:00 37.1 C 72 18 140/57 H 96 Intake & Output: Intake & Output 08/16/17 08/17/17 08/18/17 08/19/17 23:59 23:59 23:59 23:59 Intake Total 1880 3205 2238.830 Output Total 65 550 400 Balance 1815 2655 1838.830 - Objective General Appearance: positive: Alert (Generally frail appearing but non toxic elderly female, oriented and appropriate in conversation) Eyes Bilateral: positive: PERRL, EOMI, No scleral icterus Respiratory: positive: No respiratory distress, Breath sounds nml, Rales (very slight early inspiratory basilar crackles bilat weak inspiratory effort when requested; but Sa02 94% and w / 2 breaths>>97% prominent ribs) Cardiovascular: positive: Regular rate & rhythm (sl 2/6 systolic murmur loudest apex). negative: No murmur Abdomen: positive: Nml bowel sounds. negative: No distention, Tenderness Skin: positive: Warm, Dry (multiple echhymotic areas bilateral shins (no change) , no edema Lhip dressing Dry, intact, no evident hematoma) Extremities: negative: Pedal edema (bilat plexipulses on) Neurologic/Psychiatric: positive: Oriented x3 - Lab Results Fish Bones: 08/19/17 05:06 08/19/17 05:06 Other Labs: Lab Results x24hrs 08/19/17 08/19/17 Range/Units 05:06 05:06 WBC 5.8 (4.8-10.8) x10^3/uL RBC 2.39 L (4.20-5.40) 10^6/uL Hgb 7.5 L (12.0-16.0) g/dL Hct 22.0 L (37.0-47.0) % MCV 92.2 (81.0-99.0) fL MCH 31.3 H (27.0-31.0) pg MCHC 33.9 (32.0-36.0) g/dL RDW 15.2 H (12.0-15.0) % Plt Count 99 L (130-450) 10^3/uL MPV 8.5 (7.9-10.8) fL Neut # (Auto) 3.1 (1.5-6.6) 10^3/uL Lymph # (Auto) 1.8 (1.5-3.5) 10^3/uL [place] # (Auto) 0.6 (0.0-1.0) 10^3/uL Eos # (Auto) 0.3 (0.0-0.7) 10^3/uL Baso # (Auto) 0.0 (0.0-0.1) 10^3/uL Absolute Nucleated RBC 0.01 x10^3/uL Nucleated RBC % 0.1 /100WBC Sodium 134 L (135-145) mmol/L Potassium 3.6 (3.5-5.0) mmol/L Chloride 108 (101-111) mmol/L Carbon Dioxide 21 (21-32) mmol/L Anion Gap 5.0 L (6-13) BUN 21 H (6-20) mg/dL Creatinine 0.6 (0.4-1.0) mg/dL Estimated GFR (MDRD) 95 (>89) Glucose 89 (70-100) mg/dL Calcium 7.9 L (8.5-10.3) mg/dL Total Bilirubin 0.6 (0.2-1.0) mg/dL AST 25 (10-42) IU/L ALT < 10 L (10-60) IU/L Alkaline Phosphatase 37 L (42-121) IU/L Total Protein 4.4 L (6.7-8.2) g/dL Albumin 2.2 L (3.2-5.5) g/dL Globulin 2.2 (2.1-4.2) g/dL Albumin/Globulin Ratio 1.0 (1.0-2.2) Assessment/Plan - Problem List (1) Closed left hip fracture Impression: (1) Closed left hip fracture Impression: Day 3 post op for mechanical fall (she doesnt recall how ocurred) continues PT/OT; Doing better today, up in chair. For pain, tylenol, prn oxycodone (added oxycodone w/o tylenol) D/C'd morphine, added toradol due to some confusion this am; (much improved and able to work with PT) VTE proph; Foot pups and ASA (full dose) per ortho Mcguire out (re: ? reason for fall, tele no findings, Echo (murmur; preliminary; NL LV size and fxn EF 75%+, Grade II DDysfxn, No WMA, mild MR Mild TR RVSP 47 mm. trops normal, TSH nl 3.38) 2) Acute blood loss anemia, Stable; s/p 1 u PRBC 7/6 Per Op note, only 50 cc EBL Hgb 10.6 at admit (8.7 after hydration). 7.9/24.1 today Hct 32 at admit 26 7/4. 1 u PRBC 7/6 >> 7/8 7.5 22.0 Given her *small size and *2 days IVF at 100 cc/ hr, and *no evident hematoma , no evident bleeding, *hemodynamically stable (w/ very adequate BP and no tachycardia) , and has alraedy gotten PRBC, still think this reflects fluid shifts,and expect improvement H/H 08/19 No indication for BMP (d/c'd (minimize phlebotomy/iatrogenci blood loss 3) HTN; On metoprolol (Toprol 25 ) at home, continue metoprolol. BP controlled w/ rare self limited increases Immediately post op , I suspect BP elevation would more likely "reactive' r/t pain; will follow as per recommendations, no indication for acute BP lowering in hospital (w/ clonidine or hydralazine) for self limited HTN w/ no End organ damage 4) Known liver tumor (benign) Had [facility] appt in past, MRI was recommended ? if Celeste Guardado elected w/ pt not to pursuethe MRI 5) Hypothyroidsim on LT4 at home, stable TSH 3.38 (checked due to uncertain circumstatnces of fall) , continues 50 mcg daily 6) Murmur; no echo done (appears was not ordered for systolic murmur. (would not have changed need for surgery; should get outpatient echo if has not to eval murmur (anna in light of her fall) Qualifiers: Encounter type: initial encounter Qualified Code(s): S72.002A - Fracture of unspecified part of neck of left femur, initial encounter for closed fracture
[2017-08-19] MEDS: METOPROLOL SUCCINATE 25 MG TABLET PO SCH (09:21)
[2017-08-19] MEDS: POLYETHYLENE GLYCOL 3350 17 GM PACKET PO SCH (09:21)
[2017-08-19] MEDS: ASPIRIN EC 325 MG TABLET PO SCH ×2 (09:21→16:14)
[2017-08-19] MEDS ORDERED: KETOROLAC 15 MG/ML VIAL IVP ONE (10:12)
[2017-08-19] MEDS: SENNA 8.6 MG TABLET PO PRN (12:10)
[2017-08-19] MEDS: ACETAMINOPHEN 325 MG TABLET PO PRN (16:13)
[2017-08-19] MEDS: ATORVASTATIN 10 MG TABLET PO SCH (20:44)
[2017-08-20] MEDS: oxyCODONE 5 MG TABLET PO PRN ×4 (01:18→23:40)
[2017-08-20] MEDS: SODIUM CHLORIDE FLUSH 0.9% 10 ML SYRINGE IVP SCH ×3 (01:19→18:17)
[2017-08-20] MEDS ORDERED: MIN OIL/DIMETHICON/COCONUT OIL 92 GM TUBE TOP PRN (01:48)
[2017-08-20 05:51] LABS: BASOPHILS % (AUTO) 0.7 %; EOSINOPHILS # (AUTO) 0.3 10^3/uL (0.0-0.7); EOSINOPHILS % (AUTO) 5.5 %; HGB - HEMOGLOBIN 7.2 g/dL (12.0-16.0); LYMPHOCYTES # (AUTO) 1.7 10^3/uL (1.5-3.5); LYMPHOCYTES % (AUTO) 29.1 %; MEAN CORPUSCULAR HEMOGLOBIN 31.1 pg (27.0-31.0); MEAN CORPUSCULAR HGB CONC 33.3 g/dL (32.0-36.0); MEAN CORPUSCULAR VOLUME 93.4 fL (81.0-99.0); MEAN PLATELET VOLUME 7.9 fL (7.9-10.8); MONOCYTES # (AUTO) 0.6 10^3/uL (0.0-1.0); MONOCYTES % (AUTO) 9.7 %; NEUTROPHILS # (AUTO) 3.1 10^3/uL (1.5-6.6); PLT - PLATELET COUNT 133 10^3/uL (130-450); RED BLOOD COUNT 2.32 10^6/uL (4.20-5.40); RED CELL DISTRIBUTION WIDTH 15.2 % (12.0-15.0); WHITE BLOOD COUNT 5.7 x10^3/uL (4.8-10.8)
[2017-08-20] MEDS: LEVOTHYROXINE 25 MCG TABLET PO SCH (06:02)
[2017-08-20] MEDS: ASPIRIN EC 325 MG TABLET PO SCH ×2 (08:14→18:17)
[2017-08-20] MEDS: METOPROLOL SUCCINATE 25 MG TABLET PO SCH (08:15)
[2017-08-20 08:52] LABS: RED BLOOD COUNT 2.67 10^6/uL (4.20-5.40)
[2017-08-20 09:05] LABS: % IRON SATURATION 10 % (20-50); IRON 20 ug/dL (28-170); TOTAL IRON BINDING CAPACITY 196 ug/dL (250-450); TRANSFERRIN 140 mg/dL (192-382)
[2017-08-20] MEDS: SENNA 8.6 MG TABLET PO PRN (09:10)
[2017-08-20] MEDS: ACETAMINOPHEN 325 MG TABLET PO PRN (09:11)
[2017-08-20 09:22] LABS: FERRITIN 174.3 ng/mL (11.0-306.8)
[2017-08-20] MEDS: POLYETHYLENE GLYCOL 3350 17 GM PACKET PO SCH (10:14)
[2017-08-20 11:17] LABS: HGB - HEMOGLOBIN 8.2 g/dL (12.0-16.0)
[2017-08-20 11:27] LABS: ALBUMIN 2.7 g/dL (3.2-5.5); ALBUMIN/GLOBULIN RATIO 0.9 (1.0-2.2); ALKALINE PHOSPHATASE 48 IU/L (42-121); ALT ALANINE AMINOTRANSFERASE < 10 IU/L (10-60); AST ASPARTATE AMINOTRANSFERASE 27 IU/L (10-42); BILIRUBIN,TOTAL 1.2 mg/dL (0.2-1.0); BUN - BLOOD UREA NITROGEN 24 mg/dL (6-20); CALCIUM 8.3 mg/dL (8.5-10.3); CARBON DIOXIDE - CO2 21 mmol/L (21-32); CHLORIDE 108 mmol/L (101-111); CREATININE 0.7 mg/dL (0.4-1.0); GFR - MDRD 79 (>89); GLUCOSE 120 mg/dL (70-100); SODIUM 136 mmol/L (135-145); TOTAL PROTEIN 5.6 g/dL (6.7-8.2)
--- NOTE | 2017-08-20 11:36 | PROVIDER PROGRESS NOTE ---
Subjective - Prog Note Date Prog Note Date: 08/20/17 Prog Note Time: 11:33 - Subjective Pt reports feeling: Worse (Patient is still a bit lethargic. Answers questions appropriately) Objective - Vital Signs/Intake & Output Vital Signs: Vital Signs x48h Temp Pulse Resp BP Pulse Ox 08/20/17 09:54 37.6 C H 73 20 137/46 H 98 08/20/17 05:00 37.2 C 80 16 144/46 H 100 Intake & Output: Intake & Output 08/17/17 08/18/17 08/19/17 08/20/17 23:59 23:59 23:59 23:59 Intake Total 3205 2238.830 890 100 Output Total 550 400 Balance 2655 1838.830 890 100 - Lab Results Fish Bones: 08/20/17 08:33 08/20/17 08:33 Other Labs: Lab Results x24hrs 08/20/17 08/20/17 08/20/17 Range/Units 08:33 08:33 08:33 WBC (4.8-10.8) x10^3/uL RBC (4.20-5.40) 10^6/uL Hgb 8.2 L (12.0-16.0) g/dL Hct 24.4 L (37.0-47.0) % MCV (81.0-99.0) fL MCH (27.0-31.0) pg MCHC (32.0-36.0) g/dL RDW (12.0-15.0) % Plt Count (130-450) 10^3/uL MPV (7.9-10.8) fL Reticulocyte % (Auto) (0.5-2.3) % Neut # (Auto) (1.5-6.6) 10^3/uL Lymph # (Auto) (1.5-3.5) 10^3/uL [place] # (Auto) (0.0-1.0) 10^3/uL Eos # (Auto) (0.0-0.7) 10^3/uL Baso # (Auto) (0.0-0.1) 10^3/uL Absolute Nucleated RBC x10^3/uL Nucleated RBC % /100WBC Absolute Retic (0.020-0.110) 10^6/uL Sodium 136 (135-145) mmol/L Potassium 3.7 (3.5-5.0) mmol/L Chloride 108 (101-111) mmol/L Carbon Dioxide 21 (21-32) mmol/L Anion Gap 7.0 (6-13) BUN 24 H (6-20) mg/dL Creatinine 0.7 (0.4-1.0) mg/dL Estimated GFR (MDRD) 79 L (>89) Glucose 120 H (70-100) mg/dL Calcium 8.3 L (8.5-10.3) mg/dL Iron (28-170) ug/dL TIBC (250-450) ug/dL % Saturation (20-50) % Transferrin (192-382) mg/dL Ferritin (11.0-306.8) ng/mL Total Bilirubin 1.2 H (0.2-1.0) mg/dL AST 27 (10-42) IU/L ALT < 10 L (10-60) IU/L Alkaline Phosphatase 48 (42-121) IU/L Lactate Dehydrogenase 176 (91-225) IU/L Total Protein 5.6 L (6.7-8.2) g/dL Albumin 2.7 L (3.2-5.5) g/dL Globulin 2.9 (2.1-4.2) g/dL Albumin/Globulin Ratio 0.9 L (1.0-2.2) Vitamin B12 (180-914) pg/mL 08/20/17 08/20/17 08/20/17 Range/Units 08:33 08:33 08:33 WBC (4.8-10.8) x10^3/uL RBC 2.67 L (4.20-5.40) 10^6/uL Hgb (12.0-16.0) g/dL Hct (37.0-47.0) % MCV (81.0-99.0) fL MCH (27.0-31.0) pg MCHC (32.0-36.0) g/dL RDW (12.0-15.0) % Plt Count (130-450) 10^3/uL MPV (7.9-10.8) fL Reticulocyte % (Auto) 1.91 (0.5-2.3) % Neut # (Auto) (1.5-6.6) 10^3/uL Lymph # (Auto) (1.5-3.5) 10^3/uL [place] # (Auto) (0.0-1.0) 10^3/uL Eos # (Auto) (0.0-0.7) 10^3/uL Baso # (Auto) (0.0-0.1) 10^3/uL Absolute Nucleated RBC x10^3/uL Nucleated RBC % /100WBC Absolute Retic 0.051 (0.020-0.110) 10^6/uL Sodium (135-145) mmol/L Potassium (3.5-5.0) mmol/L Chloride (101-111) mmol/L Carbon Dioxide (21-32) mmol/L Anion Gap (6-13) BUN (6-20) mg/dL Creatinine (0.4-1.0) mg/dL Estimated GFR (MDRD) (>89) Glucose (70-100) mg/dL Calcium (8.5-10.3) mg/dL Iron 20 L (28-170) ug/dL TIBC 196 L (250-450) ug/dL % Saturation 10 L (20-50) % Transferrin 140 L (192-382) mg/dL Ferritin 174.3 (11.0-306.8) ng/mL Total Bilirubin (0.2-1.0) mg/dL AST (10-42) IU/L ALT (10-60) IU/L Alkaline Phosphatase (42-121) IU/L Lactate Dehydrogenase (91-225) IU/L Total Protein (6.7-8.2) g/dL Albumin (3.2-5.5) g/dL Globulin (2.1-4.2) g/dL Albumin/Globulin Ratio (1.0-2.2) Vitamin B12 429 (180-914) pg/mL 08/20/17 Range/Units 05:07 WBC 5.7 (4.8-10.8) x10^3/uL RBC 2.32 L (4.20-5.40) 10^6/uL Hgb 7.2 L (12.0-16.0) g/dL Hct 21.7 L (37.0-47.0) % MCV 93.4 (81.0-99.0) fL MCH 31.1 H (27.0-31.0) pg MCHC 33.3 (32.0-36.0) g/dL RDW 15.2 H (12.0-15.0) % Plt Count 133 (130-450) 10^3/uL MPV 7.9 (7.9-10.8) fL Reticulocyte % (Auto) (0.5-2.3) % Neut # (Auto) 3.1 (1.5-6.6) 10^3/uL Lymph # (Auto) 1.7 (1.5-3.5) 10^3/uL [place] # (Auto) 0.6 (0.0-1.0) 10^3/uL Eos # (Auto) 0.3 (0.0-0.7) 10^3/uL Baso # (Auto) 0.0 (0.0-0.1) 10^3/uL Absolute Nucleated RBC 0.01 x10^3/uL Nucleated RBC % 0.1 /100WBC Absolute Retic (0.020-0.110) 10^6/uL Sodium (135-145) mmol/L Potassium (3.5-5.0) mmol/L Chloride (101-111) mmol/L Carbon Dioxide (21-32) mmol/L Anion Gap (6-13) BUN (6-20) mg/dL Creatinine (0.4-1.0) mg/dL Estimated GFR (MDRD) (>89) Glucose (70-100) mg/dL Calcium (8.5-10.3) mg/dL Iron (28-170) ug/dL TIBC (250-450) ug/dL % Saturation (20-50) % Transferrin (192-382) mg/dL Ferritin (11.0-306.8) ng/mL Total Bilirubin (0.2-1.0) mg/dL AST (10-42) IU/L ALT (10-60) IU/L Alkaline Phosphatase (42-121) IU/L Lactate Dehydrogenase (91-225) IU/L Total Protein (6.7-8.2) g/dL Albumin (3.2-5.5) g/dL Globulin (2.1-4.2) g/dL Albumin/Globulin Ratio (1.0-2.2) Vitamin B12 (180-914) pg/mL - Other Results/Comments Other Results/Comments: EXAM: Dressing intact. Some ain with hip motion. Moves toes well. Sensation intact. Good cap filling Assessment/Plan - Problem List (1) Closed left hip fracture Impression: Satis post op PLAN: With blood count borderline low and with her a bit lethargic, agree that we should transfuse another unit PRBC's and check HCT/HGB in AM, prior to SNF transfer. Will guiac stool to check for blood in GI tract. Continue PT as tolerated. Qualifiers: Encounter type: initial encounter Qualified Code(s): S72.002A - Fracture of unspecified part of neck of left femur, initial encounter for closed fracture
[2017-08-20] MEDS: FERROUS SULFATE 325 MG TABLET PO SCH (13:27)
[2017-08-20 14:43] LABS: HGB - HEMOGLOBIN 7.6 g/dL (12.0-16.0)
--- NOTE | 2017-08-20 15:03 | PROVIDER PROGRESS NOTE ---
Subjective - Prog Note Date Prog Note Date: 08/20/17 - Subjective Pt reports feeling: No change Subjective: pt seems still weak today,and pallor. pt's daughter report pt's 80% time in home is like this, no much movement. Pt's HGB is low, plan to have transfusion. But pt's blood has specific antibody, will request it from [facility]. Plan after transfusion on tomorrow, D/C pt to [facility]. Current Medications - Current Medications Current Medications: Active Medications Acetaminophen (Tylenol) 650 - 975 mg PO Q4HR PRN PRN Reason: PAIN Last Admin: 08/20/17 09:11 Dose: 650 mg Aspirin (Ecotrin) 325 mg PO BIDWM [facility] Last Admin: 08/20/17 08:14 Dose: 325 mg Atorvastatin Calcium (Lipitor) 10 mg PO QPM [facility] Last Admin: 08/19/17 20:44 Dose: 10 mg Docusate Sodium (Colace 100mg Capsule) 100 mg PO BID PRN PRN Reason: Constipation Last Admin: 08/20/17 09:10 Dose: 100 mg Ferrous Sulfate (Feosol) 325 mg PO DAILYWM [facility] Last Admin: 08/20/17 13:27 Dose: 325 mg Levothyroxine Sodium (Synthroid) 50 mcg PO QDAC [facility] Last Admin: 08/20/17 06:02 Dose: 50 mcg Metoprolol Succinate (Toprol Xl) 25 mg PO DAILY [facility] Last Admin: 08/20/17 08:15 Dose: 25 mg Mineral Oil (Cavilon) 1 applic TOP PRN PRN PRN Reason: Skin Care Ondansetron HCl (Zofran Inj) 4 mg IVP Q6HR PRN PRN Reason: Nausea / Vomiting Ondansetron HCl (Zofran Inj) 4 mg IVP Q6HR PRN PRN Reason: Nausea / Vomiting Oxycodone HCl (Roxicodone) 5 mg PO Q4HR PRN PRN Reason: PAIN Last Admin: 08/20/17 10:24 Dose: 5 mg Polyethylene Glycol (Miralax) 17 gm PO DAILY [facility] Last Admin: 08/20/17 10:14 Dose: Not Given Senna (Senokot) 17.2 mg PO Q12H PRN PRN Reason: Constipation Last Admin: 08/20/17 09:10 Dose: 17.2 mg Sodium Chloride (Normal Saline Flush 0.9%) 10 ml IVP 0100,0900,1700 MARIA C Last Admin: 08/20/17 13:27 Dose: 10 ml Sodium Chloride (Normal Saline Flush 0.9%) 10 ml IVP PRN PRN PRN Reason: NEEDED PER PROVIDER ORDERS Last Admin: 08/17/17 21:35 Dose: 10 ml Aspirin 81 mg PO DAILY 06/13/17 Levothyroxine Sodium [Synthroid] 50 mcg PO QDAC 08/16/17 Metoprolol Succinate [Toprol Xl] 25 mg PO DAILY 08/16/17 Simvastatin [Simvastatin] 20 mg PO QPM 08/16/17 Objective - Vital Signs/Intake & Output Reviewed Vital Signs: Yes Vital Signs: Vital Signs x48h Temp Pulse Resp BP Pulse Ox 08/20/17 12:29 36.7 C 69 19 129/57 L 95 08/20/17 09:54 37.6 C H 73 20 137/46 H 98 Intake & Output: Intake & Output 08/17/17 08/18/17 08/19/17 08/20/17 23:59 23:59 23:59 23:59 Intake Total 3205 2238.830 890 125 Output Total 550 400 Balance 2655 1838.830 890 125 - Objective General Appearance: positive: No acute distress, Alert, Lethargic (pt is alert and hemodynamic stable, but some kind of lethargic) Eyes Bilateral: positive: Normal inspection, PERRL, No lid inflammation, Conjunctivae nml ENT: positive: ENT inspection nml, Pharynx nml, No signs of dehydration. negative: Purulent nasal drainage, Pharyngeal erythema, Oral lesions Neck: positive: Nml inspection, Thyroid nml, No JVD, Trachea midline. negative : Thyromegaly, Lymphadenopathy (R), Lymphadenopathy (L), Stiff neck, Swelling/ bruising, Tracheal deviation Respiratory: positive: Chest non-tender, No respiratory distress, Breath sounds nml. negative: Wheezes, Rales, Rhonchi Cardiovascular: positive: Regular rate & rhythm, No murmur, No gallop. negative : Irregularly irregular, Extrasystoles, Tachycardia, Bradycardia, JVD present, Systolic murmur, Diastolic murmur Peripheral Pulses: 2+ Radial (R), 2+ Radial (L), 2+ Dorsalis pedis (R), 2+ Dorsalis pedis (L) Abdomen: positive: Non-tender, No organomegaly, Nml bowel sounds, No distention. negative: Tenderness, Guarding, Rebound Back: positive: Nml inspection. negative: CVA tenderness (R), CVA tenderness (L ) Skin: positive: Color nml, No rash, Warm, Dry, Pallor. negative: Cyanosis, Diaphoresis, Skin rash, Decubitus, Laceration (cm) Extremities: positive: Non-tender, Full ROM. negative: Calf tenderness, Joint swelling, Zayra's sign/cords Neurologic/Psychiatric: positive: Sensation nml. negative: Weakness, Sensory loss, Facial droop, Slurred/abnml speech, Depressed mood/affect - Lab Results Fish Bones: 08/20/17 14:30 08/20/17 08:33 Other Labs: Lab Results x24hrs 08/20/17 08/20/17 08/20/17 Range/Units 14:30 08:33 08:33 WBC (4.8-10.8) x10^3/uL RBC (4.20-5.40) 10^6/uL Hgb 7.6 L 8.2 L (12.0-16.0) g/dL Hct 22.7 L 24.4 L (37.0-47.0) % MCV (81.0-99.0) fL MCH (27.0-31.0) pg MCHC (32.0-36.0) g/dL RDW (12.0-15.0) % Plt Count (130-450) 10^3/uL MPV (7.9-10.8) fL Reticulocyte % (Auto) (0.5-2.3) % Neut # (Auto) (1.5-6.6) 10^3/uL Lymph # (Auto) (1.5-3.5) 10^3/uL Atlantic # (Auto) (0.0-1.0) 10^3/uL Eos # (Auto) (0.0-0.7) 10^3/uL Baso # (Auto) (0.0-0.1) 10^3/uL Absolute Nucleated RBC x10^3/uL Nucleated RBC % /100WBC Absolute Retic (0.020-0.110) 10^6/uL Sodium 136 (135-145) mmol/L Potassium 3.7 (3.5-5.0) mmol/L Chloride 108 (101-111) mmol/L Carbon Dioxide 21 (21-32) mmol/L Anion Gap 7.0 (6-13) BUN 24 H (6-20) mg/dL Creatinine 0.7 (0.4-1.0) mg/dL Estimated GFR (MDRD) 79 L (>89) Glucose 120 H (70-100) mg/dL Calcium 8.3 L (8.5-10.3) mg/dL Iron (28-170) ug/dL TIBC (250-450) ug/dL % Saturation (20-50) % Transferrin (192-382) mg/dL Ferritin (11.0-306.8) ng/mL Total Bilirubin 1.2 H (0.2-1.0) mg/dL AST 27 (10-42) IU/L ALT < 10 L (10-60) IU/L Alkaline Phosphatase 48 (42-121) IU/L Lactate Dehydrogenase (91-225) IU/L Total Protein 5.6 L (6.7-8.2) g/dL Albumin 2.7 L (3.2-5.5) g/dL Globulin 2.9 (2.1-4.2) g/dL Albumin/Globulin Ratio 0.9 L (1.0-2.2) Vitamin B12 (180-914) pg/mL Blood Type Antibody Screen Antibody Identification Crossmatch 08/20/17 08/20/17 08/20/17 Range/Units 08:33 08:33 08:33 WBC (4.8-10.8) x10^3/uL RBC (4.20-5.40) 10^6/uL Hgb (12.0-16.0) g/dL Hct (37.0-47.0) % MCV (81.0-99.0) fL MCH (27.0-31.0) pg MCHC (32.0-36.0) g/dL RDW (12.0-15.0) % Plt Count (130-450) 10^3/uL MPV (7.9-10.8) fL Reticulocyte % (Auto) (0.5-2.3) % Neut # (Auto) (1.5-6.6) 10^3/uL Lymph # (Auto) (1.5-3.5) 10^3/uL Atlantic # (Auto) (0.0-1.0) 10^3/uL Eos # (Auto) (0.0-0.7) 10^3/uL Baso # (Auto) (0.0-0.1) 10^3/uL Absolute Nucleated RBC x10^3/uL Nucleated RBC % /100WBC Absolute Retic (0.020-0.110) 10^6/uL Sodium (135-145) mmol/L Potassium (3.5-5.0) mmol/L Chloride (101-111) mmol/L Carbon Dioxide (21-32) mmol/L Anion Gap (6-13) BUN (6-20) mg/dL Creatinine (0.4-1.0) mg/dL Estimated GFR (MDRD) (>89) Glucose (70-100) mg/dL Calcium (8.5-10.3) mg/dL Iron 20 L (28-170) ug/dL TIBC 196 L (250-450) ug/dL % Saturation 10 L (20-50) % Transferrin 140 L (192-382) mg/dL Ferritin 174.3 (11.0-306.8) ng/mL Total Bilirubin (0.2-1.0) mg/dL AST (10-42) IU/L ALT (10-60) IU/L Alkaline Phosphatase (42-121) IU/L Lactate Dehydrogenase 176 (91-225) IU/L Total Protein (6.7-8.2) g/dL Albumin (3.2-5.5) g/dL Globulin (2.1-4.2) g/dL Albumin/Globulin Ratio (1.0-2.2) Vitamin B12 429 (180-914) pg/mL Blood Type Antibody Screen Antibody Identification Crossmatch 08/20/17 08/20/17 08/20/17 Range/Units 08:33 08:33 05:07 WBC 5.7 (4.8-10.8) x10^3/uL RBC 2.67 L 2.32 L (4.20-5.40) 10^6/uL Hgb 7.2 L (12.0-16.0) g/dL Hct 21.7 L (37.0-47.0) % MCV 93.4 (81.0-99.0) fL MCH 31.1 H (27.0-31.0) pg MCHC 33.3 (32.0-36.0) g/dL RDW 15.2 H (12.0-15.0) % Plt Count 133 (130-450) 10^3/uL MPV 7.9 (7.9-10.8) fL Reticulocyte % (Auto) 1.91 (0.5-2.3) % Neut # (Auto) 3.1 (1.5-6.6) 10^3/uL Lymph # (Auto) 1.7 (1.5-3.5) 10^3/uL Atlantic # (Auto) 0.6 (0.0-1.0) 10^3/uL Eos # (Auto) 0.3 (0.0-0.7) 10^3/uL Baso # (Auto) 0.0 (0.0-0.1) 10^3/uL Absolute Nucleated RBC 0.01 x10^3/uL Nucleated RBC % 0.1 /100WBC Absolute Retic 0.051 (0.020-0.110) 10^6/uL Sodium (135-145) mmol/L Potassium (3.5-5.0) mmol/L Chloride (101-111) mmol/L Carbon Dioxide (21-32) mmol/L Anion Gap (6-13) BUN (6-20) mg/dL Creatinine (0.4-1.0) mg/dL Estimated GFR (MDRD) (>89) Glucose (70-100) mg/dL Calcium (8.5-10.3) mg/dL Iron (28-170) ug/dL TIBC (250-450) ug/dL % Saturation (20-50) % Transferrin (192-382) mg/dL Ferritin (11.0-306.8) ng/mL Total Bilirubin (0.2-1.0) mg/dL AST (10-42) IU/L ALT (10-60) IU/L Alkaline Phosphatase (42-121) IU/L Lactate Dehydrogenase (91-225) IU/L Total Protein (6.7-8.2) g/dL Albumin (3.2-5.5) g/dL Globulin (2.1-4.2) g/dL Albumin/Globulin Ratio (1.0-2.2) Vitamin B12 (180-914) pg/mL Blood Type A POSITIVE Antibody Screen POSITIVE Antibody Identification Warm Auto Antibody Crossmatch See Detail ABX Reporting Has patient been on IV antibiotics over the past 48 hours?: No Assessment/Plan - Problem List (1) Closed left hip fracture Impression: (1) Closed left hip fracture Impression: dressing is intact, no bleeding at surgical site. continue PT/OT plan to d/c to [facility] tomorrow after transfusion follow up orthopedics's recommendation Day 3 post op for mechanical fall (she doesnt recall how ocurred) continues PT/OT; Doing better today, up in chair. For pain, tylenol, prn oxycodone (added oxycodone w/o tylenol) D/C'd morphine, added toradol due to some confusion this am; (much improved and able to work with PT) VTE proph; Foot pups and ASA (full dose) per ortho Mcguire out (re: ? reason for fall, tele no findings, Echo (murmur; preliminary; NL LV size and fxn EF 75%+, Grade II DDysfxn, No WMA, mild MR Mild TR RVSP 47 mm. trops normal, TSH nl 3.38) 2) Acute blood loss anemia, pt is weak and pallor, HGB is 7.2/7.6 will transfusion on tomorrow, pt need specific blood from [facility] consult with nutrition as well, and switch to Mechanical diet after talking with pt's family Stable; s/p 1 u PRBC 7/6 Per Op note, only 50 cc EBL Hgb 10.6 at admit (8.7 after hydration). 7.9/24.1 today Hct 32 at admit 26 7/4. 1 u PRBC 7/6 >> 7/8 7.5 22.0 Given her *small size and *2 days IVF at 100 cc/ hr, and *no evident hematoma , no evident bleeding, *hemodynamically stable (w/ very adequate BP and no tachycardia) , and has alraedy gotten PRBC, still think this reflects fluid shifts,and expect improvement H/H 7/8 No indication for BMP (d/c'd (minimize phlebotomy/iatrogenci blood loss 3) HTN; On metoprolol (Toprol 25 ) at home, continue metoprolol. BP controlled w/ rare self limited increases Immediately post op , I suspect BP elevation would more likely "reactive' r/t pain; will follow as per recommendations, no indication for acute BP lowering in hospital (w/ clonidine or hydralazine) for self limited HTN w/ no End organ damage 4) Known liver tumor (benign) Had Mary appt in past, MRI was recommended ? if Celeste Guardado elected w/ pt not to pursuethe MRI 5) Hypothyroidsim on LT4 at home, stable TSH 3.38 (checked due to uncertain circumstatnces of fall) , continues 50 mcg daily 6) Murmur ECHO review, EF>70%. Qualifiers: Encounter type: initial encounter Qualified Code(s): S72.002A - Fracture of unspecified part of neck of left femur, initial encounter for closed fracture
[2017-08-20] MEDS ORDERED: ZINC OXIDE 20% OINT 28.35 GM TUBE TOP PRN (16:46)
[2017-08-20] MEDS: ATORVASTATIN 10 MG TABLET PO SCH (20:08)
[2017-08-21] MEDS ORDERED: hydrALAZINE INJ 20 MG/ML VIAL IVP SCH (01:36)
[2017-08-21] MEDS: SODIUM CHLORIDE FLUSH 0.9% 10 ML SYRINGE IVP SCH ×2 (01:56→08:11)
[2017-08-21] MEDS: ACETAMINOPHEN 325 MG TABLET PO PRN ×3 (02:21→12:14)
[2017-08-21 05:36] LABS: BASOPHILS % (AUTO) 0.8 %; EOSINOPHILS # (AUTO) 0.2 10^3/uL (0.0-0.7); EOSINOPHILS % (AUTO) 4.3 %; HGB - HEMOGLOBIN 9.8 g/dL (12.0-16.0); LYMPHOCYTES # (AUTO) 1.5 10^3/uL (1.5-3.5); LYMPHOCYTES % (AUTO) 26.6 %; MEAN CORPUSCULAR HEMOGLOBIN 31.6 pg (27.0-31.0); MEAN CORPUSCULAR HGB CONC 34.1 g/dL (32.0-36.0); MEAN CORPUSCULAR VOLUME 92.7 fL (81.0-99.0); MEAN PLATELET VOLUME 7.4 fL (7.9-10.8); MONOCYTES # (AUTO) 0.6 10^3/uL (0.0-1.0); MONOCYTES % (AUTO) 11.2 %; NEUTROPHILS # (AUTO) 3.2 10^3/uL (1.5-6.6); NEUTROPHILS % (AUTO) 57.1 %; PLT - PLATELET COUNT 144 10^3/uL (130-450); RED BLOOD COUNT 3.11 10^6/uL (4.20-5.40); RED CELL DISTRIBUTION WIDTH 15.1 % (12.0-15.0); WHITE BLOOD COUNT 5.7 x10^3/uL (4.8-10.8)
[2017-08-21 05:47] LABS: ALBUMIN 2.5 g/dL (3.2-5.5); ALBUMIN/GLOBULIN RATIO 1.1 (1.0-2.2); BILIRUBIN,TOTAL 2.1 mg/dL (0.2-1.0); CALCIUM 7.8 mg/dL (8.5-10.3); CREATININE 0.6 mg/dL (0.4-1.0); TOTAL PROTEIN 4.7 g/dL (6.7-8.2)
[2017-08-21] MEDS: LEVOTHYROXINE 25 MCG TABLET PO SCH (06:21)
[2017-08-21] MEDS: METOPROLOL SUCCINATE 25 MG TABLET PO SCH (08:10)
[2017-08-21] MEDS: oxyCODONE 5 MG TABLET PO PRN ×2 (08:10→12:13)
[2017-08-21] MEDS: ASPIRIN EC 325 MG TABLET PO SCH (08:10)
[2017-08-21] MEDS: FERROUS SULFATE 325 MG TABLET PO SCH (08:11)
[2017-08-21] MEDS: POLYETHYLENE GLYCOL 3350 17 GM PACKET PO SCH (08:12)
--- NOTE | 2017-08-21 12:45 | PROVIDER PROGRESS NOTE ---
Hospitalist Cross-cover Note - Cross-Cover Note Cross-Cover Note: behavioral health case manager called and asked me the reason why pt need US of liver for insurance purpose. pt has elevated bilirubin to 2.1 today. On June 2017, With her postop visit to Dr. Hernandez, an MRI was recommended to visualize this mass. Dr. Celeste Byers is her PCP. Pt did not have MRI yet. They may have opted not to do it.
--- NOTE | 2017-08-21 14:18 | Discharge Plan ---
"Discharge Plan for SNF / EDIS - DC Plan and Transition Orders Disposition: 03 SNF DC/Xfer Condition: Poor SNF Transition Orders: Admit to: [facility]] under the care of [Doctor Amina Collado] Discharge Diagnosis: [left hip repair, anemia, HTN, benign liver tumor, hypothyoidism] Medicare Certification: I certify that Post [facility] care is medically necessary on a continuing basis for any of the conditions for which she/he is receiving care during hospitalization. Notify PCP of admission and forward orders to primary provider for signature. Weight on admission and [44kg]. Call PCP immediately if weight increases by [4 ] pounds or if patient develops dyspnea, chest pain/tightness or edema. House Bowel Program: [Yes] If no BM after 2 days, nurse may give M.O.M. 30ml PO PRN and /or ducolax Supp 1 W[place] and /or JOSEPH 250mg P.O., and/or senna 1-2 tabs PO. On day 3 nurse may give repeat above order until residents constipation is resolved. Immunizations: Annual Influenza Vaccine: [Yes]. (between Oct 13 and May 12.) Unless allergy or already given Two-Step PPD: [Yes] per [facility] [id number] or appropriate documentation of approved exceptions Treatments & Other Orders: [pt may follow up Dr. Collado when pt is arrival to [facility], Follow up in orthopedic clinic in 2 weeks for conor out and reXR. Aspirin x 2 weeks for DVT prophylaxis. PT - walker ambulate - weight bear as tolerated on left. ] Oxygen Orders: [yes] Lab Tests or X-Rays Orders: [may have blood work to monitor pt's anemia status. May have CXR to monitor pt's respiratory status as needed] Orthopedic Orders: [Follow up in orthopedic clinic in 2 weeks for conor out.]. Medications: PLEASE REFER TO THE DISCHARGE MEDICATION LIST. Insulin Orders? [No] Diagnosis: Diabetes Initiate hypo and hyperglycemia protocols for BG <70 and BG >375. May check BG prn for signs/symptoms of dysglycemia. Frequency of BG checks: [AC/Meal/HS] Basal Insulin: [] Lantus 100 units / ml inject subq as follows: [] [] Other: [] Correction Insulin: - Select the type of insulin below [Choose: Novolog/Humalog]100 units /ml insulin inject subq per orders indicate below [] LOW DOSE [] MODERATE DOSE [] MODERATE/HIGH DOSE [] HIGH DOSE GB UNITS GB UNITS GB UNITS GB UNITS 61-140 0 UNITS 61-140 0 UNITS 61-140 0 UNITS 61-140 0 UNITS 141-175 1 UNITS 141-175 1 UNITS 141-175 2 UNITS 141-175 3 UNITS 176-225 2 UNITS 176-225 3 UNITS 176-225 4 UNITS 176-225 5 UNITS 226-275 3 UNITS 226-275 5 UNITS 226-275 6 UNITS 226-275 7 UNITS 276-325 4 UNITS 276-325 7 UNITS 276-325 8 UNITS 276-325 9 UNITS 326-375 5 UNITS 326-375 9 UNITS 326-375 10 UNITS 326-375 11 UNITS >375 CONTACT MD >375 CONTACT MD >375 CONTACT MD >375 CONTACT MD Custom Dosing: [Choose: None/Novolog/Humalog] 100 units/ml Insulin inject subq as follows: GB Units 61-140 [] Units 141-175 [] Units 176-225 [] Units 226-275 [] Units 276-325 []Units 326-375 [] Units >375 Contact MD Allergies and Adverse Reactions: Allergies Allergy/AdvReac Type Severity Reaction Status Date / Time No Known Drug Allergies Allergy Verified 08/16/17 03:27 - Medications New Prescriptions: oxyCODONE [Roxicodone] 5 mg PO Q4HR PRN #20 tablet PRN Reason: Pain Aspirin EC [Ecotrin] 325 mg PO BIDWM #28 tablet - Diet Type: Geriatric Texture: Mech soft Liquids: Thin May have monthly special meal: Yes - Therapies | Activity Therapy: Evaluation | Treat if indicated: PT, OT Rehabilitation Potential: Maximize functional status Activity: Activity as Tolerated Additional Instructions: pt may follow up Dr. Collado when pt is arrival to [facility], Follow up in orthopedic clinic in 2 weeks for conor out and reXR. Aspirin x 2 weeks for DVT prophylaxis. PT - walker ambulate - weight bear as tolerated on left. Pt May have blood work to monitor pt's anemia status, May have CXR to monitor pt's respiratory status as needed"
--- NOTE | 2017-08-21 14:47 | DISCHARGE SUMMARY ---
"Discharge Summary Discharge Date: 08/21/17 Discharging Provider: PRATHER Primary Care Provider: Celeste Hutchison Condition at Discharge: Poor Discharge Disposition: 03 SNF DC/Xfer Discharge Facility Name: [facility] - DIAGNOSES Admission Diagnoses: (1) Closed left hip fracture (2) Preoperative cardiovascular examination (3) Hypertension (4) Normocytic anemia (5) Liver tumor (benign) (6) Hypothyroid Discharge Diagnoses with Status of Each Condition: (1) Closed left hip fracture pt had hip repair by orthopedics, evaluated and treated with PT/OT, was recommended to SNF. Follow up in orthopedic clinic in 2 weeks for conor out and reXR. Aspirin x 2 weeks for DVT prophylaxis. PT - walker ambulate - weight bear as tolerated on left 2) Acute blood loss anemia, pt had blood transfusion, now her HGB 9.8. Nurse report pt did not have rectal bleed, stool is normal color and was sent for occult test. Iron study show mild iron deficiency. Iron pill is prescribed 3) HTN pt had elevated BP on last night but now she continue to have stable BP, follow up PCP to manage 4) Known liver tumor (benign) Called Dr. Dickson who did biopsy of liver for pt. Dr. Dickson report pt had benign report, and pathology report in the [facility] 5) Hypothyroidsim stable, continue PCP management 6) Murmur ECHO reveals EF over 70%, continue PCP management. - HPI History of Present Illness: pt was admitted for fall and left hip fracture. pt had hip repair by orthopedics. pt continue to have PT/OT. pt developed anemia and weakness. pt had blood transfusion. Pt was d/c to SNF per PT/OT recommend for continuing strength training. - CONSULTS | PROCEDURES Consultations: Dr. Flex Pérez Procedures: left hip repair - ALLERGIES Allergies/Adverse Reactions: Allergies Allergy/AdvReac Type Severity Reaction Status Date / Time No Known Drug Allergies Allergy Verified 08/16/17 03:27 - MEDICATIONS Home Medications: Ambulatory Orders Medication Instructions Recorded Confirmed Levothyroxine Sodium [Synthroid] 50 mcg PO QDAC 08/16/17 08/16/17 Metoprolol Succinate [Toprol Xl] 25 mg PO DAILY 08/16/17 08/16/17 Simvastatin 20 mg PO QPM 08/16/17 08/16/17 Aspirin EC [Ecotrin] 325 mg PO BIDWM #28 tablet 08/21/17 Ferrous Sulfate 325 mg PO DAILY #15 tablet 08/21/17 oxyCODONE [Roxicodone] 5 mg PO Q4HR PRN #20 tablet 08/21/17 - PHYSICAL EXAM AT DISCHARGE General Appearance: positive: No acute distress, Alert. negative: Lethargic Eyes Bilateral: positive: Normal inspection, PERRL, No lid inflammation, Conjunctivae nml ENT: positive: ENT inspection nml, Pharynx nml, No signs of dehydration. negative: Purulent nasal drainage, Pharyngeal erythema, Oral lesions Neck: positive: Nml inspection, Thyroid nml, No JVD, Trachea midline. negative : Thyromegaly, Lymphadenopathy (R), Lymphadenopathy (L), Stiff neck, Carotid bruit, Swelling/bruising, Tracheal deviation Respiratory: positive: Chest non-tender, No respiratory distress, Breath sounds nml, Other (no SOB, no fever, chill or cough. WBC is normal, 97% sat on room air ). negative: Wheezes, Rales, Rhonchi Cardiovascular: positive: Regular rate & rhythm, No murmur, No gallop. negative : Irregularly irregular, Extrasystoles, Tachycardia, Bradycardia, JVD present, Systolic murmur, Diastolic murmur Peripheral Pulses: positive: 2+ Abdomen: positive: Non-tender, No organomegaly, Nml bowel sounds, No distention. negative: Tenderness, Guarding, Rebound Back: positive: Nml inspection. negative: CVA tenderness (R), CVA tenderness (L ) Skin: positive: Color nml, No rash, Warm, Dry. negative: Cyanosis, Diaphoresis , Pallor Extremities: positive: Non-tender, Full ROM, Nml appearance. negative: Calf tenderness, Joint swelling, Zayra's sign/cords Neurologic/Psychiatric: positive: Sensation nml, Mood/affect nml. negative: Weakness, Sensory loss, Facial droop, Slurred/abnml speech, Depressed mood/ affect - LABS Result Diagrams: 08/21/17 05:19 08/21/17 05:19 - FOLLOW UP Follow Up: pt may follow [facility] Follow up in orthopedic clinic in 2 weeks for conor out and reXR. Aspirin x 2 weeks for DVT prophylaxis. PT - walker ambulate - weight bear as tolerated on left. Pt May have blood work to monitor pt's anemia status, May have CXR to monitor pt's respiratory status as needed - TIME SPENT Time Spent in Discharge (Minutes): 55"
[2017-08-21 14:50] VITALS: BP 159/61
== END 2017-08-21 15:17 | DRG 481 ==
LOC: EDUNIT# → ED 03:13 → MS3 05:36
PROVIDERS: ADMIT Specialist; ATTEND Nurse Practitioner Gerontology
PROC: 0QS736Z Reposition Left Upper Femur with Intramedullary Internal Fixation Device, Percutaneous Approach (ICD-10-PCS; principal; 2017-08-16 10:00)
PROC: 30233N1 Transfusion of Nonautologous Red Blood Cells into Peripheral Vein, Percutaneous Approach (ICD-10-PCS; 2017-08-17)
DX: S72.002A Fracture of unspecified part of neck of left femur, initial encounter for closed fracture (principal); W19.XXXA Unspecified fall, initial encounter; Y92.009 Unspecified place in unspecified non-institutional (private) residence as the place of occurrence of the external cause; S72.142A Displaced intertrochanteric fracture of left femur, initial encounter for closed fracture; D62 Acute posthemorrhagic anemia; I10 Essential (primary) hypertension; D50.9 Iron deficiency anemia, unspecified; D13.4 Benign neoplasm of liver; E03.9 Hypothyroidism, unspecified; R01.1 Cardiac murmur, unspecified; I95.81 Postprocedural hypotension; I25.10 Atherosclerotic heart disease of native coronary artery without angina pectoris; W01.0XXA Fall on same level from slipping, tripping and stumbling without subsequent striking against object, initial encounter; Y92.003 Bedroom of unspecified non-institutional (private) residence as the place of occurrence of the external cause; S81.812A Laceration without foreign body, left lower leg, initial encounter; X58.XXXA Exposure to other specified factors, initial encounter; Y92.234 Operating room of hospital as the place of occurrence of the external cause; K73.9 Chronic hepatitis, unspecified; K74.3 Primary biliary cirrhosis; E78.00 Pure hypercholesterolemia, unspecified; Z79.82 Long term (current) use of aspirin; Z79.899 Other long term (current) drug therapy; Z95.5 Presence of coronary angioplasty implant and graft
CPT/HCPCS: 36415; 51702; 71045; 80048; 80053; 82270; 82607; 82728; 83540; 83615; 83735; 84443; 84466; 85014; 85018; 85025; 85044; 86850; 86870; 86900; 86901; 86902; 86920; 86922; 93306; 96374; 99283; 99284

== ENCOUNTER 2017-08-21 14:50 | Outpatient (CLI) | payer MEDICARE | END 2017-08-21 14:51 | LOC: EMS 14:50 | PROVIDERS: ATTEND Surgery | DX: S72.002A Fracture of unspecified part of neck of left femur, initial encounter for closed fracture (principal); W18.39XA Other fall on same level, initial encounter | CPT/HCPCS: A0425; A0428 ==